=== PATIENT | female | born 1970 ===

== ENCOUNTER 2017-02-12 14:12 | Observation (INO) | payer BC, MEDICAID ==
[2017-02-12 14:13] VITALS: BMI 31.8
[2017-02-12 14:45] LABS: ADD MANUAL DIFF? NO
[2017-02-12 14:58] LABS: BASO # 0.01 K/mm3 (0.0-2.0); BASO % 0.1 % (0.0-3.0); EOS % 0.4 % (1.5-5.0); GRAN # 7.96 (1.4-6.5); GRAN % 73.8 % (50.0-68.0); HEMATOCRIT 38.3 % (36.0-48.0); LYMPH # 2.2 (1.2-3.4); LYMPH % 20.1 % (22.0-35.0); MEAN CELL VOLUME 85.5 fL (80.0-105.0); MEAN CORPUSCULAR HEMOGLOBIN 28.3 pg (25.0-35.0); MEAN CORPUSCULAR HGB CONC 33.2 g/dl (31.0-37.0); MEAN PLATELET VOLUME 8.8 fl (7.0-11.0); MONO # 0.6 (0.1-0.6); MONO % 5.6 % (1.0-6.0); PLATELET COUNT 432 10^3/uL (120.0-450.0); RED CELL DISTRIBUTION WIDTH 13.9 % (11.5-14.5); WHITE BLOOD COUNT 10.8 10^3/ul (4.5-11.0)
[2017-02-12] MEDS ORDERED: Sodium Chloride 0.9% 1,000 ML IV STA (15:00)
[2017-02-12 15:09] LABS: ALB/GLOB RATIO 1.1 (1.1-1.8); ALKALINE PHOSPHATASE 115 U/L (38-133); ALT/SGPT 17 U/L (7-56); AST/SGOT 20 U/L (15-39); BILIRUBIN,TOTAL 0.8 mg/dL (0.2-1.3); BLOOD UREA NITROGEN 13 mg/dL (7-21); CALCIUM 9.9 mg/dL (8.4-10.5); CARBON DIOXIDE 25 mmol/L (21-33); CHLORIDE 100 mmol/L (98-107); GFR AFRICAN-AMERICAN > 60; GLUCOSE,RANDOM 98 mg/dL (70-110); POTASSIUM 3.8 mmol/L (3.6-5.0); SODIUM 138 mmol/L (132-148); TOTAL PROTEIN 8.5 g/dL (5.8-8.3)
--- NOTE | 2017-02-12 15:09 | ED PDOC ---
Arrival/HPI - General Historian: Patient <Josh Martinez - Last Filed: 02/12/17 17:30> <Cristobal Dykes - Last Filed: 02/12/17 18:31> - General Chief Complaint: Chest Pain Time Seen by Provider: 02/12/17 14:19 - History of Present Illness Narrative History of Present Illness (Text): 02/12/17 15:02 46 F with PMHx of GERD, Anxiety and Depression presents to [facility] [place] with complaints of left sided chest pain. She reported that the left sided chest pain began at approx 10 am this morning and has remained constant, 8/10 in intensity and nonradiating. Pt describes the pain as being sharp and pressure with episodes of palpitations. Pt was resting at time of onset, however noted recent stressors including arguments with family. Pt also reported associated dizziness. She denied fever, chills, sob, headache, abdominal pains, n/v/d/c or urinary symptoms. 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 Corona Cardiology: Dr. Bear (Josh Martinez) Past Medical History - Past History Past History: Non-Contributing - Infectious Disease Hx of Infectious Diseases: None - Tetanus Immunization Tetanus Immunization: Unknown - Past Medical History Past Medical History: No Previous - Cardiac Hx Cardiac Disorders: No - Pulmonary Hx Respiratory Disorders: No - Neurological Hx Neurological Disorder: No - HEENT Hx HEENT Disorder: No - Renal Hx Renal Disorder: No - Endocrine/Metabolic Hx Endocrine Disorders: No - Hematological/Oncological Hx Blood Disorders: No - Integumentary Hx Dermatological Disorder: No - Musculoskeletal/Rheumatological Hx Musculoskeletal Disorders: No - Gastrointestinal Hx Gastrointestinal Disorders: Yes Hx Gastroesophageal Reflux: Yes - Genitourinary/Gynecological Hx Genitourinary Disorders: No - Psychiatric Hx Panic Disorder: No Hx Substance Use: No - Past Surgical History Past Surgical History: No Previous - Surgical History Hx Musculoskeletal Surgery: Yes (right shoulder) Hx Tubal Ligation: Yes - Anesthesia Hx Anesthesia: Yes Hx Anesthesia Reactions: No Hx Malignant Hyperthermia: No - Suicidal Assessment Feels Threatened In Home Enviroment: No <Josh Martinez - Last Filed: 02/12/17 17:30> Family/Social History Family/Social History: CAD/SD Smoking Status: Never Smoked Hx Alcohol Use: No Hx Substance Use: No Hx Substance Use Treatment: No <Josh Martinez - Last Filed: 02/12/17 17:30> Allergies/Home Meds <Josh Martinez - Last Filed: 02/12/17 17:30> <DonisCristobal Han - Last Filed: 02/12/17 18:31> Allergies/Adverse Reactions: Allergies No Known Allergies Allergy (Verified 02/12/17 14:25) Home Medications: Home Meds Medication Instructions Recorded Confirmed Omeprazole Magnesium [Prilosec Otc] 20 mg PO DAILY 02/12/17 02/12/17 Review of Systems - Review of Systems Constitutional: Normal Eyes: Normal ENT: Normal Respiratory: Normal Cardiovascular: Chest Pain (left sided), Palpitations Gastrointestinal: Normal Genitourinary Female: Normal Musculoskeletal: Normal Skin: Normal Neurological: Normal Endocrine: Normal Hemo/Lymphatic: Normal Psychiatric: Normal <Josh Martinez - Last Filed: 02/12/17 17:30> Physical Exam Vital Signs Reviewed: Yes Temperature: Afebrile Blood Pressure: Normal Pulse: Regular Respiratory Rate: Normal Appearance: Positive for: Well-Appearing, Non-Toxic, Comfortable Pain Distress: None Mental Status: Positive for: Alert and Oriented X 3 - Systems Exam Head: Present: Atraumatic, Normocephalic Pupils: Present: PERRL Extroacular Muscles: Present: EOMI Conjunctiva: Present: Normal Mouth: Present: Moist Mucous Membranes Neck: Present: Normal Range of Motion Respiratory/Chest: Present: Clear to Auscultation, Good Air Exchange. No: Respiratory Distress, Accessory Muscle Use Cardiovascular: Present: Regular Rate and Rhythm, Normal S1, S2. No: Murmurs Abdomen: Present: Normal Bowel Sounds. No: Tenderness, Distention, Peritoneal Signs Upper Extremity: Present: Normal Inspection. No: Cyanosis, Edema Lower Extremity: Present: Normal Inspection. No: Edema Neurological: Present: GCS=15, CN II-XII Intact, Speech Normal Skin: Present: Warm, Dry, Normal Color. No: Rashes Psychiatric: Present: Alert, Oriented x 3, Normal Insight, Normal Concentration <Rob Martinezdawn - Last Filed: 02/12/17 17:30> Vital Signs Temp Pulse Resp BP Pulse Ox 02/12/17 14:18 97.9 F 69 18 138/89 97 Medical Decision Making - EKG Interpretation Comparison: Similar to previous EKG <Josh Martinez - Last Filed: 02/12/17 17:30> <Cristobal Dykes - Last Filed: 02/12/17 18:31> ED Course and Treatment: 02/12/17 15:10 46 F with no significant cardiac hx presented to [facility] [place] [facility] with complaints of left sided chest pains. On obs to r/o acs -- CBC -- CMP -- Troponins -- IVF -- Xanax -- Pepcid -- Asa -- CXR -- EKG -- UA/UCx -- Reassess and dispo 02/12/17 15:12 (Josh Martinez) Seen and examined with resident. 46 y/o F p/w chest pain with associated nausea , palpitations, and dizziness. Examination unremarkable. Accepted by Dr. Sneed for r/o ACS observation. (Cristobal Dykes) - Lab Interpretations Lab Results: 02/12/17 14:30 02/12/17 14:30 Lab Results 02/12/17 15:36: Urine Color Yellow, Urine Appearance Clear, Urine pH 6.0, Ur Specific [place] 1.025, Urine Protein Negative, Urine Glucose (UA) Negative, Urine Ketones Negative, Urine Blood Negative, Urine Nitrate Negative, Urine Bilirubin Negative, Urine Urobilinogen 0.2, Ur Leukocyte Esterase Trace H, Urine RBC Negative, Urine WBC 1 - 3, Ur Epithelial Cells Many, Urine Bacteria Few 02/12/17 14:30: WBC 10.8, RBC 4.48, Hgb 12.7, Hct 38.3, MCV 85.5, MCH 28.3, MCHC 33.2, RDW 13.9, Plt Count 432, MPV 8.8, Gran % 73.8 H, Lymph % (Auto) 20.1 L, Becker % (Auto) 5.6, Eos % (Auto) 0.4 L, Baso % (Auto) 0.1, Gran # 7.96 H, Lymph # 2.2, Becker # 0.6, Eos # 0.0, Baso # 0.01, Sodium 138, Potassium 3.8, Chloride 100, Carbon Dioxide 25, Anion Gap 17, BUN 13, Creatinine 0.7, Est GFR ( Amer) > 60, Est GFR (Non-Af Amer) > 60, Random Glucose 98, Calcium 9.9, Total Bilirubin 0.8, AST 20, ALT 17, Alkaline Phosphatase 115, Lactate Dehydrogenase 365, Total Creatine Kinase 33 L, Troponin I < 0.01, Total Protein 8.5 H, Albumin 4.4, Globulin 4.1, Albumin/Globulin Ratio 1.1, Beta HCG, Quant < 2.39 - RAD Interpretation Radiology Orders: 02/12/17 14:37 CHEST PORTABLE [RAD] Stat - EKG Interpretation EKG Interpretation (Text): 02/12/17 15:12 NSR @87 bpm, No ST changes (Juan,Manit) - Medication Orders Current Medication Orders: Discontinued Medications Alprazolam (Xanax) 0.25 mg PO STAT STA PRN Reason: Protocol Stop: 02/12/17 15:00 Last Admin: 02/12/17 15:41 Dose: 0.25 MG Behavioural Document 02/12/17 15:41 [facility] [place] 02/12/17 15:41 [place] [id number][place] Maintenance Maintenance Dose No Nonmedicinal Nonmedicinal Interventions See nurse's notes Behavior Behavior for Medication: Anxiety Aspirin (Aspirin) 325 mg PO STAT STA Stop: 02/12/17 14:37 Last Admin: 02/12/17 15:41 Dose: 325 MG Famotidine (Pepcid) 20 mg PO STAT STA Stop: 02/12/17 15:00 Last Admin: 02/12/17 15:42 Dose: 20 MG Sodium Chloride (Sodium Chloride 0.9%) 1,000 mls @ 999 mls/hr IV .Q1H1M STA Stop: 02/12/17 16:00 Last Admin: 02/12/17 15:42 Dose: 999 MLS/HR eMAR Start Stop Document 02/12/17 15:42 [facility] [place] 02/12/17 15:42 [place] [id number]) Intravenous Solution Start Date 02/12/17 Start Time 15:42 End Date 02/12/17 End time 16:45 Total Infusion Time 63 Disposition/Present on Arrival - Present on Arrival Any Indicators Present on Arrival: No History of DVT/PE: No History of Uncontrolled Diabetes: No Urinary Catheter: No History of Decub. Ulcer: No History Surgical Site Infection Following: None - Disposition Have Diagnosis and Disposition been Completed?: Yes Disposition Time: 17:30 <Josh Martinez - Last Filed: 02/12/17 17:30> - Disposition Have Diagnosis and Disposition been Completed?: Yes Disposition Time: 15:24 Patient Plan: Observation, Telemetry <Cristobal Dykes - Last Filed: 02/12/17 18:31> - Disposition Diagnosis: Chest pain Disposition: HOSPITALIZED Patient Problems: Current Active Problems Problem Status Diagnosed Chest pain Acute Condition: IMPROVED
[2017-02-12 15:24] LABS: TROPONIN I < 0.01 ng/mL
[2017-02-12 16:00] LABS: URINE APPEARANCE CLEAR (CLEAR); URINE BILIRUBIN NEGATIVE (NEGATIVE); URINE BLOOD NEGATIVE (NEGATIVE); URINE COLOR YELLOW (YELLOW); URINE GLUCOSE (UA) NEGATIVE (NEGATIVE); URINE KETONE NEGATIVE (NEGATIVE); URINE LEUKOCYTE ESTERASE TRACE Leu/uL (NEGATIVE); URINE PROTEIN NEGATIVE mg/dL (<30 mg/dL); URINE UROBILINOGEN 0.2 E.U./dL (<1 E.U./dL)
[2017-02-12 16:05] LABS: URINE BACTERIA FEW (NEG); URINE EPITHELIAL CELLS MANY /hpf (0-5); URINE RBC NEGATIVE /hpf (0-2)
--- NOTE | 2017-02-12 19:50 | CARD ---
APPROVED REPORT EKG Measurement Heart [id number] 138P2 [id number] <Conclusion> Normal sinus rhythm Normal ECG
[2017-02-12] MEDS: Naproxen 550 mg Tab PO SCH (22:42)
--- NOTE | 2017-02-13 05:00 | HP ---
HISTORY OF PRESENT ILLNESS: The patient is 46 years old, known to me from previous admission. Came to Emergency Room because of chest pain and discomfort associated with shortness of breath and some w eakness. She has left-sided chest pain that started a couple of minutes prior to coming to the [facility]. by . Denies any fever or chills. No nausea or vomiting. Did have episode of palpi tation. The patient states she has a lot of stress at home. PAST MEDICAL HISTORY: Significant for: 1. Hypertension. 2. Peptic ulcer disease. 3. Anxiety disorder. PAST SURGICAL HISTORY: Significant for rotator cuff tear and history of tubal ligation. FAMILY HISTORY: Significant for coronary artery disease in father. SOCIAL HISTORY: She denies smoking, drinking or alcohol use. 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 ALLERGIES: She is not allergic to any medications. MEDICATIONS AT HOME: She is on Prilosec that she takes once in a while. REVIEW OF SYSTEMS: Significant for chest discomfort, otherwise doing well, but feels better now. PHYSICAL EXAMINATION: GENERAL: She is awake and alert, communicative. VITAL SIGNS: She is afebrile, pulse 69, respirations 18, blood pressure 138/80. LUNGS: Bilateral good airflow, no rhonchi or crackle. HEART: S1, S2 audible. No murmur. ABDOMEN: Soft, nontender, no rebound, no guarding. NEUROLOGIC: The patient is awake and alert, communicative. LABORATORY DATA: WBC is 10.8, hemoglobin 12.7, hematocrit 38.2, platelets 432. Chemistry: Sodium 1 38, potassium 3.8, chloride 100, CO2 25, BUN 13, creatinine 0.7, blood sugar of 98. LFTs are within normal limit. CPK is 33. Troponin 0.01. HCG is negative. Urinalysis is unremarkable. ASSESSMENT: 1. Chest pain, probably stress related, rule out underlying coronary artery disease. 2. Hypertension. 3. Rule out hyperlipidemia. PLAN: We will place the patient in observation. I will order thyroid profile, followup troponins, a nd cardiology consult by has been requested. Hannah Sneed MD cc: [phone] TT: 02/13/2017 05:00:11 jn
[2017-02-13 06:17] VITALS: O2SAT 95
[2017-02-13] MEDS ORDERED: Pantoprazole 40 mg EC Tab PO SCH (06:30)
[2017-02-13 07:08] LABS: ADD MANUAL DIFF? NO
[2017-02-13 07:17] LABS: BASO # 0.01 K/mm3 (0.0-2.0); BASO % 0.1 % (0.0-3.0); EOS # 0.1 (0.0-0.7); EOS % 0.9 % (1.5-5.0); GRAN # 5.95 (1.4-6.5); GRAN % 66.3 % (50.0-68.0); HEMATOCRIT 33.2 % (36.0-48.0); LYMPH # 2.4 (1.2-3.4); LYMPH % 26.6 % (22.0-35.0); MEAN CELL VOLUME 85.6 fL (80.0-105.0); MEAN CORPUSCULAR HEMOGLOBIN 27.8 pg (25.0-35.0); MEAN CORPUSCULAR HGB CONC 32.5 g/dl (31.0-37.0); MEAN PLATELET VOLUME 8.7 fl (7.0-11.0); MONO # 0.6 (0.1-0.6); MONO % 6.1 % (1.0-6.0); PLATELET COUNT 369 10^3/uL (120.0-450.0)
--- NOTE | 2017-02-13 08:10 | RAD ---
HISTORY: chest pain COMPARISON: Comparison is made to the previous study dated 10/23/2016 FINDINGS: LUNGS: No evidence of new infiltrate or consolidation in the lungs. PLEURA: No significant pleural effusion identified, no pneumothorax apparent. CARDIOVASCULAR: Normal. OSSEOUS STRUCTURES: No significant abnormalities. VISUALIZED UPPER ABDOMEN: Normal. OTHER FINDINGS: None. IMPRESSION: No active disease.
[2017-02-13 08:31] LABS: ALB/GLOB RATIO 1.1 (1.1-1.8); ALKALINE PHOSPHATASE 80 U/L (38-133); ALT/SGPT 12 U/L (7-56); AST/SGOT 17 U/L (15-39); BILIRUBIN,TOTAL 0.6 mg/dL (0.2-1.3); BLOOD UREA NITROGEN 13 mg/dL (7-21); CALCIUM 8.7 mg/dL (8.4-10.5); CARBON DIOXIDE 24 mmol/L (21-33); CHLORIDE 105 mmol/L (98-107); CHOLESTEROL 155 mg/dL (130-200); GFR AFRICAN-AMERICAN > 60; GLUCOSE,RANDOM 81 mg/dL (70-110); PHOSPHOROUS 3.6 mg/dL (2.5-4.5); SODIUM 136 mmol/L (132-148); TOTAL PROTEIN 6.4 g/dL (5.8-8.3)
[2017-02-13 09:03] LABS: TROPONIN I < 0.01 ng/mL
[2017-02-13] MEDS: Naproxen 550 mg Tab PO SCH (10:14)
[2017-02-13 11:33] VITALS: PULSE 69
--- NOTE | 2017-02-13 11:34 | CON ---
DATE: 02/13/2017 REASON FOR CONSULTATION AND FOLLOW: A squeezing sensation in the chest with electrical shock going t o the back, cardiac evaluation. BRIEF CLINICAL HISTORY: A 46-year-old female with no significant past medical history except anxiety disorder, takes off and on Naprosyn and Xanax, on workman's compensation, says that feels couple of times that the heart is squeezing and then electrical shocks going into the back, so came to the [facility]. Denies any dyspnea on exertion. Denies any chest pain on exertion. PAST MEDICAL HISTORY: Significant for anxiety disorder. SOCIAL HISTORY: Denies smoking, denies any history of alcohol abuse. PAST SURGICAL HISTORY: Significant for right rotator cuff surgery and shaving of the rotator cuff. SOCIAL HISTORY: Denies smoking, denies any history of alcohol abuse, has 5 children. Last 17 years ago, no unusual symptoms. FAMILY HISTORY: Significant for grandmother with coronary artery disease. Father has possible coron patrick artery disease. CURRENT MEDICATIONS: Taking Naprosyn, aspirin, pantoprazole, Xanax. REVIEW OF SYSTEMS: As per HPI, history of gastroesophageal reflux, taking omeprazole and taking for right shoulder pain and pain in the body, Naprosyn, off and on. Rest as per HPI. PREVIOUS CARDIAC WORKUP: The patient had a stress test 11/28/2015 that showed normal perfusion scan, breast attenuation, normal myocardial perfusion study, ejection fraction 76%. The patient had echoca rdiography also 11/27/2015 shows ejection fraction 60%-65%, mild to moderate mitral regurgitation, tra ce to mild tricuspid regurgitation, right ventricular systolic pressure 36. REVIEW OF SYSTEMS: As per HPI. PHYSICAL EXAMINATION: VITAL SIGNS: Temperature afebrile, heart rate , blood pressure 123/70. HEENT: PERRLA. Extraocular muscles intact. NECK: Supple. No carotid bruits. No thyromegaly. CHEST: Clear to auscultation. HEART: S1, S2 regular. ABDOMEN: Soft. EXTREMITIES: Clubbing, cyanosis negative. BLOOD WORKUP: WBC 9, hemoglobin 10. , hematocrit 33.2, platelet count 369. Chemistry shows sodi um 130, potassium 4, chloride 105, carbon dioxide 24, anion gap of 11, BUN 13, creatinine 0.7. Tropo ruthann 0.01. EKG shows normal sinus, no acute ST-T changes noted, heart rate 67. Troponin 0.01, negati ve. IMPRESSION: Atypical chest pain, troponin negative. RECOMMENDATION: We will repeat another set of troponin. We will get echo and schedule a stress test as outpatient because of the risk factors. We will discontinue telemetry. Possible discharge today . Discussed with the patient. Thank you, Dr. Sneed, for providing us the opportunity in taking care of the patient. Emely Bear MD cc:Hannah Sneed MD [phone] TT: 02/13/2017 11:34:25 Confirmation # [id number] Dictation # [id number] en
[2017-02-13 12:55] VITALS: BP 107/65; RESP 18; TEMP 98
--- NOTE | 2017-02-13 14:32 | DS ---
The patient is a 46-year-old, seen and examined sitting in chair. Comfortable. She states her pain is better. She was very anxious last night but Xanax did help. She was able to sleep. PHYSICAL EXAMINATION: VITAL SIGNS: She is afebrile, pulse 78, respirations 20. Blood pressure 123/70. LUNGS: Bilateral good airflow, no rhonchi or crackle. HEART: S1, S2 audible. No murmur. ABDOMEN: Soft, obese, nontender, no rebound, no guarding. NEUROLOGIC: The patient is awake and alert, communicative. LABORATORY EXAM: WBC is 9.0, hemoglobin 10.8, hematocrit 33.2, platelets 369. Chemistry: Sodium 13 6, potassium 4.0, chloride 105, CO2 24, BUN 13, creatinine 0.7, blood sugar of 81. LFTs are within n ormal limits. Three sets of cardiac enzymes are negative. Total cholesterol is 155, LDL is 98, HDL is 43. Urinalysis is negative. ASSESSMENT: 1. Noncardiac chest pain. 2. Anxiety disorder. 3. Possible costochondritis. PLAN: She will have a stress test done as outpatient. Will discharge her on Naprosyn as needed, Rory ax 0.25 b.i.d. p.r.n., and she will follow up with Dr. Corona as outpatient. Hannah Sneed MD cc: [phone] TT: 02/13/2017 14:32:13 vt
--- NOTE | 2017-02-13 15:44 | CARD ---
APPROVED REPORT EKG Measurement Heart [id number] 138P6 [id number] <Conclusion> Normal sinus rhythm Normal ECG
--- NOTE | 2017-02-13 18:12 | CARD ---
APPROVED REPORT EXAM: Two-dimensional and M-mode echocardiogram with Doppler and color Doppler. INDICATION Chest Pain 2D DIMENSIONS Left Atrium (2D)3.6 (1.6-4.0cm)IVSd0.9 (0.7-1.1cm) LVDd4.4 (3.9-5.9cm)PWd1.1 (0.7-1.1cm) LVDs2.8 (2.5-4.0cm)FS (%) 36.9 % LVEF (%)67.0 (>50%) M-Mode DIMENSIONS Aortic Root2.30 (2.2-3.7cm)Aortic Cusp Exc.1.60 (1.5-2.0cm) Aortic Valve AoV Peak Rfwmeplk574.0cm/Kwadwo Peak GR.11mmHg Mitral Valve MV E Kobfwnlq96.1cm/sMV A Bgibxknj61.0cm/sE/A ratio1.3 TDI E/Lateral E'0.0E/Medial E'0.0 Tricuspid Valve TR Peak Jfmfrjxm661nf/sRAP [id number] Peak Gr.24mmHg [id number] LEFT VENTRICLE The left ventricle is normal size. There is normal left ventricular wall thickness. The left ventricular function is normal.EF-65% There is normal LV segmental wall motion. The left ventricular diastolic function is normal. No left ventricle thrombus noted on this study. There is no ventricular septal defect visualized. There is no left ventricular aneurysm. There is no mass noted in the left ventricle. RIGHT VENTRICLE The right ventricle is normal size. There is normal right ventricular wall thickness. The right ventricular systolic function is normal. ATRIA The left atrium size is normal. The right atrium size is normal. The interatrial septum is intact with no evidence for an atrial septal defect. AORTIC VALVE The aortic valve is normal in structure. No aortic regurgitation is present. There is no aortic valvular stenosis. There is no aortic valvular vegetation. MITRAL VALVE The mitral valve is normal in structure. Mitral regurgitation is trace. There is no mitral valve stenosis. There is no evidence of mitral valve prolapse. TRICUSPID VALVE The tricuspid valve leaflets are thickened , but open well. There is trace to mild tricuspid regurgitation.RVSP-34 mmof Hg. There is no tricuspid valve stenosis. There is no tricuspid valve prolapse or vegetation. PULMONIC VALVE The pulmonary valve is normal in structure. There is no pulmonic valvular regurgitation. There is no pulmonic valvular stenosis. GREAT VESSELS The aortic root is normal in size. The ascending aorta is normal in size. The pulmonary artery is normal. The IVC is normal in size and collapses >50% with inspiration. PERICARDIAL EFFUSION There is no pleural effusion. There is no pericardial effusion. <Conclusion> Normal Chamber Size. EF-65% Trace MR Trace to Mild TR. RVSP-34 mmof Hg.
== END 2017-02-13 16:25 | disposition home or self-care (01) ==
LOC: ED 14:12 → ERH 17:30 → 2RNO 20:40
PROVIDERS: ADMIT Internal Medicine; ATTEND Internal Medicine
DX: R07.89 Other chest pain (principal); F41.9 Anxiety disorder, unspecified; M94.0 Chondrocostal junction syndrome [Tietze]; F32.89 Other specified depressive episodes; I10 Essential (primary) hypertension; Z87.11 Personal history of peptic ulcer disease; K21.9 Gastro-esophageal reflux disease without esophagitis; Z82.49 Family history of ischemic heart disease and other diseases of the circulatory system; Z98.51 Tubal ligation status; E78.5 Hyperlipidemia, unspecified
CPT/HCPCS: 36415; 71010; 80053; 80061; 81001; 82550; 83036; 83615; 84100; 84484; 84702; 85025; 87086; 93005; 93306; 96360; 99285; G0378; J7040

== ENCOUNTER 2017-05-22 11:21 | Emergency (ER) | payer BC, MEDICAID, OTHER ==
[2017-05-22 11:31] VITALS: BMI 27.4
[2017-05-22 11:32] VITALS: TEMP 98.4; O2SAT 100
[2017-05-22 12:09] LABS: ADD MANUAL DIFF? NO
--- NOTE | 2017-05-22 12:11 | ED PDOC ---
Arrival/HPI - General Chief Complaint: Palpitations Time Seen by Provider: 05/22/17 11:29 Historian: Patient - History of Present Illness Narrative History of Present Illness (Text): 05/22/17 12:09 47 year old female whose past medical history includes anxiety, hypertension, and peptic ulcer disease presents to the emergency department with left sided chest pain and palpitations, and abnormal EKG yesterday. Patient states she was scheduled for rotator cuff surgery and had an abnormal EKG done yesterday for medical clearance for surgery at [facility]. She states she does not know what the EKG showed. Patient describes the pain as a squeezing sensation, non-radiating, not worse with inspiration. She also reports nausea, some shortness of breath, and lightheadedness. Patient states she did not take Aspirin. Denies numbness, diarrhea, or vaginal bleeding. No recent travel, surgeries, or contraceptive use. PMD: Dr. Corona Time/Duration: 24 hours Symptom Onset: Gradual Symptom Course: Unchanged Modifying Factors (Text): None Past Medical History - Provider Review Nursing Documentation Reviewed: Yes - Past History Past History: Non-Contributing - Infectious Disease Hx of Infectious Diseases: None - Tetanus Immunization Tetanus Immunization: Unknown - Past Medical History Past Medical History: No Previous - Cardiac Hx Cardiac Disorders: No - Pulmonary Other/Comment: occassionally uses inhaler with seasonal allergies - Neurological Hx Neurological Disorder: No - HEENT Other/Comment: reading glasses - Renal Hx Renal Disorder: No - Endocrine/Metabolic Hx Endocrine Disorders: No - Hematological/Oncological Hx Blood Disorders: No - Integumentary Hx Dermatological Disorder: No - Musculoskeletal/Rheumatological Hx Arthritis: Yes Hx Falls: No - Gastrointestinal Hx Gastroesophageal Reflux: Yes - Genitourinary/Gynecological Hx Urinary Tract Infection: Yes - Psychiatric Hx Anxiety: Yes Hx Panic Disorder: Yes Hx Substance Use: No - Past Surgical History Past Surgical History: No Previous - Surgical History Other/Comment: right rotator cuff surgery and a tubal ligation - Anesthesia Hx Anesthesia: Yes Hx Anesthesia Reactions: No Hx Malignant Hyperthermia: No - Suicidal Assessment Feels Threatened In Home Enviroment: No Family/Social History - Physician Review Nursing Documentation Reviewed: Yes Family/Social History: Unknown Family HX Smoking Status: Never Smoked Hx Alcohol Use: No Hx Substance Use: No Hx Substance Use Treatment: No Allergies/Home Meds Allergies/Adverse Reactions: Allergies No Known Allergies Allergy (Verified 02/12/17 14:25) Home Medications: Home Meds Medication Instructions Recorded Confirmed Omeprazole Magnesium [Prilosec Otc] 20 mg PO DAILY 02/12/17 05/22/17 Review of Systems - Physician Review All systems were reviewed & negative as marked: Yes - Review of Systems Respiratory: SOB Cardiovascular: Chest Pain, Palpitations Gastrointestinal: Nausea. absent: Diarrhea Genitourinary Female: absent: Vaginal Bleeding Neurological: Other (Lightheadedness; No numbness) Physical Exam Vital Signs Reviewed: Yes Vital Signs Temp Pulse Resp BP Pulse Ox 05/22/17 13:54 79 18 131/71 100 05/22/17 12:23 89 18 133/75 100 05/22/17 11:31 98.4 F 99 H 18 135/89 100 Temperature: Afebrile Blood Pressure: Normal Pulse: Regular Respiratory Rate: Normal Appearance: Positive for: Well-Appearing, Non-Toxic, Comfortable Pain Distress: None Mental Status: Positive for: Alert and Oriented X 3 - Systems Exam Head: Present: Atraumatic, Normocephalic Pupils: Present: PERRL Extroacular Muscles: Present: EOMI Conjunctiva: Present: Normal Mouth: Present: Moist Mucous Membranes Neck: Present: Normal Range of Motion Respiratory/Chest: Present: Clear to Auscultation, Good Air Exchange. No: Respiratory Distress, Accessory Muscle Use Cardiovascular: Present: Regular Rate and Rhythm, Normal S1, S2. No: Murmurs Abdomen: Present: Normal Bowel Sounds. No: Tenderness, Distention, Peritoneal Signs Back: Present: Normal Inspection Upper Extremity: Present: Normal Inspection. No: Cyanosis, Edema Lower Extremity: Present: Normal Inspection. No: Edema Neurological: Present: GCS=15, CN II-XII Intact, Speech Normal Skin: Present: Warm, Dry, Normal Color. No: Rashes Psychiatric: Present: Alert, Oriented x 3, Normal Insight, Normal Concentration Medical Decision Making ED Course and Treatment: Impression: 47 year old female whose past medical history includes anxiety, hypertension, and peptic ulcer disease presents to the emergency department with left sided chest pain and palpitations, and abnormal EKG yesterday. Differential Diagnosis included but are not limited to: Chest pain r/o ACS vs Anxiety Plan: -- EKG, Chest X-ray -- Aspirin -- Labs -- Reassess and disposition Prior Visits: Notes and results from previous visits were reviewed. Patient last seen in the ED on 02/12/17 for chest pain and admitted for chest pain. Progress Notes: 05/22/17 14:02 Patient has a low BONG Risk score and a low HEART Score. Her symptoms have been constant since yesterday and she has a negative troponin. Her EKG is no change from her previous visit. She has a normal Echo 02/13/17 and normal Stress test from 11/28/15. Patient's symptoms improved from Ativan and she will follow up with her PMD in 1-2days. Advised to return to the ED if symptoms worsen or any other concern. - Lab Interpretations Lab Results: 05/22/17 11:50 05/22/17 11:50 Lab Results 05/22/17 11:50: PT 12.0 H, INR 1.11 H, APTT 26.2, D-Dimer, Quantitative 0.23 05/22/17 11:50: Sodium 138, Potassium 3.3 L, Chloride 106, Carbon Dioxide 24, Anion Gap 11, BUN 15, Creatinine 0.7, Est GFR ( Amer) > 60, Est GFR (Non- Af Amer) > 60, Random Glucose 133 H, Calcium 9.4, Magnesium 1.7, Total Bilirubin 0.3, AST 16, ALT 35, Alkaline Phosphatase 82, Lactate Dehydrogenase 282 L, Total Creatine Kinase < 20 L, Troponin I < 0.01, NT-Pro-B Natriuret Pep 43.6, Total Protein 6.9, Albumin 3.7, Globulin 3.2, Albumin/Globulin Ratio 1.2 05/22/17 11:50: WBC 8.1, RBC 3.98, Hgb 11.5 L, Hct 34.7 L, MCV 87.2, MCH 28.9, MCHC 33.1, RDW 13.4, Plt Count 361, MPV 8.7, Gran % 77.8 H, Lymph % (Auto) 17.0 L, [place] % (Auto) 4.1, Eos % (Auto) 1.0 L, Baso % (Auto) 0.1, Gran # 6.33, Lymph # 1.4, [place] # 0.3, Eos # 0.1, Baso # 0.01 - RAD Interpretation Narrative RAD Interpretations (Text): Chest X-Ray Patient Account Specialist: John Carcamo MD IMPRESSION: No active disease Radiology Orders: 05/22/17 11:39 CHEST PORTABLE [RAD] Stat Supervisory Lifeguard: Radiologist - EKG Interpretation Interpreted by ED Physician: Yes (EKG shows NSR at 89 BPM, otherwise normal.) Type: 12 lead EKG - Medication Orders Current Medication Orders: Discontinued Medications Aspirin (Aspirin) 325 mg PO STAT STA Stop: 05/22/17 11:39 Last Admin: 05/22/17 12:10 Dose: 325 mg Lorazepam (Ativan) 1 mg PO ONCE ONE PRN Reason: Protocol Stop: 05/22/17 13:20 Last Admin: 05/22/17 13:32 Dose: 1 mg Potassium Chloride (K-Dur 20 Meq Er Tab) 40 meq PO STAT STA Stop: 05/22/17 12:29 Last Admin: 05/22/17 13:32 Dose: 40 meq BONG Risk Score for UA/NSTEMI - BONG Risk Score Age > 64: NO 3 or more CAD Risk Factors: NO Known CAD (Stenosis greater than 50%): NO Aspirin use in past 7 days: NO Severe Angina: NO EKG ST changes greater than 0.5mm: NO Positive Cardiac Marker: NO BONG Score: 0 % risk at 14 days of: all cause mortality, new or recurrent IA, or severe recurrent ischemia requiring urgen revascularization: 5% - Scribe Statement The provider has reviewed the documentation as recorded by the Zoila Gutierres Provider Scribe Attestation: All medical record entries made by the Zoila were at my direction and personally dictated by me. I have reviewed the chart and agree that the record accurately reflects my personal performance of the history, physical exam, medical decision making, and the department course for this patient. I have also personally directed, reviewed, and agree with the discharge instructions and disposition. Disposition/Present on Arrival - Present on Arrival Any Indicators Present on Arrival: No History of DVT/PE: No History of Uncontrolled Diabetes: No Urinary Catheter: No History of Decub. Ulcer: No History Surgical Site Infection Following: None - Disposition Have Diagnosis and Disposition been Completed?: Yes Diagnosis: Chest pain Disposition: HOME/ ROUTINE Disposition Time: 14:26 Patient Plan: Discharge Patient Problems: Current Active Problems Problem Status Onset Chest pain Acute Condition: IMPROVED Discharge Instructions (ExitCare): Chest Pain (ED), Anxiety (ED) Additional Instructions: Ms Cortez, thank you for letting us take care of you today. Your provider was Dr. Sun. You were treated for Chest Pain. The emergency medical care you received today was directed at your acute symptoms. If you were prescribed any medication, please fill it and take as directed. It may take several days for your symptoms to resolve. Return to the Emergency Department if your symptoms worsen, do not improve, or if you have any other problems. Please contact your doctor or call one of the physicians/clinics you have been referred to that are listed on the Patient Visit Information form that is included in your discharge packet. Bring any paperwork you were given at discharge with you along with any medications you are taking to your follow up visit. Our treatment cannot replace ongoing medical care by a primary care provider (PCP) outside of the emergency department. Thank you for allowing the [facility] team to be part of your care today. If you had an X-Ray or CT scan: A Radiologist will review the ED reading if any change in treatment is needed we will contact you. If you had a blood, urine, or wound culture: It will take several days for the results, if any change in treatment is needed we will contact you. If you had an STI test: It will take 48 hours for the results. Please call after 1 week if you have not heard back. Referrals: Juliana Corona DO [Primary Care Provider] - Follow up with primary Forms: [employer] ([place]ian), WORK NOTE
[2017-05-22 12:21] LABS: ALB/GLOB RATIO 1.2 (1.1-1.8); ALKALINE PHOSPHATASE 82 U/L (38-133); ALT/SGPT 35 U/L (7-56); AST/SGOT 16 U/L (15-39); BILIRUBIN,TOTAL 0.3 mg/dL (0.2-1.3); BLOOD UREA NITROGEN 15 mg/dL (7-21); CALCIUM 9.4 mg/dL (8.4-10.5); CARBON DIOXIDE 24 mmol/L (21-33); CHLORIDE 106 mmol/L (98-107); GFR AFRICAN-AMERICAN > 60; GLUCOSE,RANDOM 133 mg/dL (70-110); MAGNESIUM 1.7 mg/dL (1.7-2.2); POTASSIUM 3.3 mmol/L (3.6-5.0); SODIUM 138 mmol/L (132-148); TOTAL PROTEIN 6.9 g/dL (5.8-8.3)
[2017-05-22 12:25] LABS: BASO # 0.01 K/mm3 (0.0-2.0); BASO % 0.1 % (0.0-3.0); EOS # 0.1 (0.0-0.7); GRAN # 6.33 (1.4-6.5); GRAN % 77.8 % (50.0-68.0); HEMATOCRIT 34.7 % (36.0-48.0); LYMPH # 1.4 (1.2-3.4); MEAN CELL VOLUME 87.2 fL (80.0-105.0); MEAN CORPUSCULAR HEMOGLOBIN 28.9 pg (25.0-35.0); MEAN CORPUSCULAR HGB CONC 33.1 g/dl (31.0-37.0); MEAN PLATELET VOLUME 8.7 fl (7.0-11.0); MONO # 0.3 (0.1-0.6); MONO % 4.1 % (1.0-6.0); PLATELET COUNT 361 10^3/uL (120.0-450.0); RED CELL DISTRIBUTION WIDTH 13.4 % (11.5-14.5); WHITE BLOOD COUNT 8.1 10^3/ul (4.5-11.0)
[2017-05-22] MEDS ORDERED: Potassium Chloride 20 mEq ER Tab PO STA (12:28)
[2017-05-22 12:33] LABS: TROPONIN I < 0.01 ng/mL
[2017-05-22 12:57] LABS: INR 1.11 (0.93-1.08); PARTIAL THROMBOPLASTIN TIME 26.2 Seconds (23.7-30.8)
[2017-05-22 13:00] LABS: D DIMER 0.23 mg/L FEU (0-0.50)
--- NOTE | 2017-05-22 13:00 | RAD ---
HISTORY: chest pain r/o chf COMPARISON: 02/12/2017 FINDINGS: LUNGS: No active pulmonary disease. PLEURA: No significant pleural effusion identified, no pneumothorax apparent. CARDIOVASCULAR: Normal. OSSEOUS STRUCTURES: No significant abnormalities. VISUALIZED UPPER ABDOMEN: Normal. OTHER FINDINGS: None. IMPRESSION: No active disease.
[2017-05-22 14:38] VITALS: BP 130/75; PULSE 72; RESP 16
--- NOTE | 2017-05-23 11:36 | CARD ---
APPROVED REPORT EKG Measurement Heart [id number] <Conclusion> Normal sinus rhythm Normal ECG
== END 2017-05-22 14:40 | disposition home or self-care (01) ==
LOC: ED 11:21
DX: R07.9 Chest pain, unspecified (principal); I10 Essential (primary) hypertension; F41.9 Anxiety disorder, unspecified

== ENCOUNTER 2017-08-27 13:22 | Observation (INO) | payer MEDICAID, OTHER ==
[2017-08-27 13:25] VITALS: BMI 30.8
[2017-08-27 13:59] LABS: URINE BILIRUBIN NEGATIVE (NEGATIVE); URINE BLOOD NEGATIVE (NEGATIVE); URINE GLUCOSE (UA) NEGATIVE (NEGATIVE); URINE KETONE NEGATIVE (NEGATIVE); URINE LEUKOCYTE ESTERASE NEGATIVE Leu/uL (NEGATIVE); URINE PROTEIN NEGATIVE mg/dL (<30 mg/dL); URINE UROBILINOGEN 0.2 E.U./dL (<1 E.U./dL)
[2017-08-27 14:07] LABS: URINE COLOR YELLOW (YELLOW)
[2017-08-27 14:08] LABS: URINE APPEARANCE CLEAR (CLEAR)
--- NOTE | 2017-08-27 14:09 | ED PDOC ---
Arrival/HPI - General Chief Complaint: Headache Time Seen by Provider: 08/27/17 13:26 Historian: Patient - History of Present Illness Narrative History of Present Illness (Text): 08/27/17 13:40 A 47 year old female, whose past medical history includes anxiety, hypertension , and peptic ulcer disease, presents to the emergency department complaining of headache and chest pain. Patient reports when she woke up this morning, she began experiencing chest pain and nausea. She mentions she feels no pain when with touch and is relieved of pain when taking deep breaths. Patient describes chest pain as "tightness". Patient notes when ambulating, she experiences sob, fatigue and dizziness (as though she might pass out). Denies of any vomiting, diarrhea, or any other complaints. PMD: Dr. Corona Past Medical History - Provider Review Nursing Documentation Reviewed: Yes - Past History Past History: Non-Contributing - Infectious Disease Hx of Infectious Diseases: None - Tetanus Immunization Tetanus Immunization: Unknown - Past Medical History Past Medical History: No Previous - Cardiac Hx Cardiac Disorders: No - Pulmonary Hx Respiratory Disorders: Yes Other/Comment: occassionally uses inhaler with seasonal allergies - Neurological Hx Neurological Disorder: No - HEENT Other/Comment: reading glasses - Renal Hx Renal Disorder: No - Endocrine/Metabolic Hx Endocrine Disorders: No - Hematological/Oncological Hx Blood Disorders: No - Integumentary Hx Dermatological Disorder: No - Musculoskeletal/Rheumatological Hx Arthritis: Yes Hx Falls: No - Gastrointestinal Hx Gastroesophageal Reflux: Yes - Genitourinary/Gynecological Hx Urinary Tract Infection: Yes - Psychiatric Hx Anxiety: Yes Hx Panic Disorder: Yes Hx Substance Use: No - Past Surgical History Past Surgical History: No Previous - Surgical History Other/Comment: right/left rotator cuff surgery and a tubal ligation - Anesthesia Hx Anesthesia: Yes Hx Anesthesia Reactions: No Hx Malignant Hyperthermia: No - Suicidal Assessment Feels Threatened In Home Enviroment: No Family/Social History - Physician Review Nursing Documentation Reviewed: Yes Family/Social History: No Known Family HX Smoking Status: Never Smoked Hx Alcohol Use: No Hx Substance Use: No Hx Substance Use Treatment: No Allergies/Home Meds Allergies/Adverse Reactions: Allergies No Known Allergies Allergy (Verified 08/27/17 13:29) Home Medications: Home Meds Medication Instructions Recorded Confirmed Albuterol Sulfate [Proventil Hfa] 1 puff IH PRN PRN 08/27/17 08/27/17 traMADol [Ultram] 50 mg PO PRN PRN 08/27/17 08/27/17 Review of Systems - Physician Review All systems were reviewed & negative as marked: Yes - Review of Systems Respiratory: absent: SOB Cardiovascular: Chest Pain ("tightness" as described by patient) Gastrointestinal: Nausea. absent: Abdominal Pain, Diarrhea, Vomiting Physical Exam Vital Signs Reviewed: Yes Vital Signs Temp Pulse Resp BP Pulse Ox 08/27/17 19:26 71 16 125/67 98 08/27/17 17:44 98.3 F 84 18 134/83 100 08/27/17 13:35 98.7 F 80 18 139/82 100 Temperature: Afebrile Blood Pressure: Normal Pulse: Regular Respiratory Rate: Normal Appearance: Positive for: Well-Appearing Pain Distress: None Mental Status: Positive for: Alert and Oriented X 3 - Systems Exam Head: Present: Atraumatic, Normocephalic Pupils: Present: PERRL Conjunctiva: Present: Normal Mouth: Present: Moist Mucous Membranes Pharnyx: Present: Normal. No: ERYTHEMA, EXUDATE Neck: Present: Normal Range of Motion Respiratory/Chest: Present: Clear to Auscultation, Good Air Exchange. No: Respiratory Distress, Accessory Muscle Use Cardiovascular: Present: Regular Rate and Rhythm, Normal S1, S2. No: Murmurs Abdomen: Present: Normal Bowel Sounds. No: Tenderness, Distention, Peritoneal Signs Back: Present: Normal Inspection Upper Extremity: Present: Normal Inspection. No: Cyanosis, Edema Lower Extremity: Present: Normal Inspection. No: Edema Neurological: Present: GCS=15, CN II-XII Intact, Speech Normal Skin: Present: Warm, Dry, Normal Color. No: Rashes Psychiatric: Present: Alert, Oriented x 3, Normal Insight, Normal Concentration Medical Decision Making ED Course and Treatment: 08/27/17 13:45 Impression: 47 year old female with chest pain, dizziness, nausea, SOMMER. No acute findings on physical exam. Risk factors include HTN and FH of CAD. Plan: -- EKG -- Chest X-ray -- Labs -- Xanax -- Pepcid -- Reassess and disposition Prior Visits: Notes and results from previous visits were reviewed. Patient was last seen in the emergency department on 05/22/2017 for left sided chest pain and palpitations. Patient was discharged home. Progress Notes: EKG: Ordered, reviewed, and independently interpreted the EKG. Rate : 80 BPM Rhythm : NSR Interpretation : No ST-segment elevations or depressions, no T-wave inversions, normal intervals. Comparison : No previous EKG for comparison. 08/27/2017 14:32 Chest X-ray IMPRESSION: No active disease. Dictator: John Cummings MD 08/27/17 19:41 Patient with noted history of cp and sob - given xanax, famotidine, and protonix with minimal relief of cp - she was seen in the hospital by cardiology about 6-7 months ago and was recommended to have a stress test, which was never done and now is still having persistent cp - will observe further on tele - discussed with Dr. Rylee Hernandez for placement on the hospitalist service. - Lab Interpretations Lab Results: 08/27/17 14:21 08/27/17 14:21 Lab Results 08/27/17 14:21: Sodium 142, Potassium 3.5 L, Chloride 105, Carbon Dioxide 25, Anion Gap 16, BUN 13, Creatinine 0.6 L, Est GFR ( Amer) > 60, Est GFR ( Non-Af Amer) > 60, Random Glucose 98, Calcium 9.3, Magnesium 1.8, Total Bilirubin 0.4, AST 19, ALT 29, Alkaline Phosphatase 94, Lactate Dehydrogenase 371, Total Creatine Kinase 36, Troponin I < 0.01, NT-Pro-B Natriuret Pep 35.7, Total Protein 7.2, Albumin 4.1, Globulin 3.2, Albumin/Globulin Ratio 1.3, Lipase 83 08/27/17 14:21: PT 11.8, INR 1.09 H, APTT 27.7, D-Dimer, Quantitative 0.19 08/27/17 14:21: WBC 9.3, RBC 4.16, Hgb 11.9 L, Hct 35.9 L, MCV 86.3, MCH 28.6, MCHC 33.1, RDW 13.5, Plt Count 393, MPV 8.4, Gran % 76.7 H, Lymph % (Auto) 17.8 L, [place] % (Auto) 5.0, Eos % (Auto) 0.4 L, Baso % (Auto) 0.1, Gran # 7.16 H, Lymph # 1.7, [place] # 0.5, Eos # 0.0, Baso # 0.01 08/27/17 13:51: Urine Color Yellow, Urine Appearance Clear, Urine pH 6.0, Ur Specific [place] 1.020, Urine Protein Negative, Urine Glucose (UA) Negative, Urine Ketones Negative, Urine Blood Negative, Urine Nitrate Negative, Urine Bilirubin Negative, Urine Urobilinogen 0.2, Ur Leukocyte Esterase Negative I have reviewed the lab results: Yes - RAD Interpretation Radiology Orders: 08/27/17 13:45 CHEST TWO VIEWS (PA/LAT) [RAD] Stat - Medication Orders Current Medication Orders: Discontinued Medications Acetaminophen (Tylenol 325mg Tab) 650 mg PO STAT STA Stop: 08/27/17 14:13 Last Admin: 08/27/17 14:56 Dose: 650 mg MAR Pain/Vitals Document 08/27/17 14:56 EQ (Rec: 08/27/17 14:56 EQ [id number]) Pain Reassessment Is This A Pain ReAssessment? No Sleep Is patient sleeping during reassessment? No Presence of Pain Presence of Pain Yes Alprazolam (Xanax) 0.25 mg PO STAT STA PRN Reason: Protocol Stop: 08/27/17 13:46 Last Admin: 08/27/17 14:14 Dose: 0.25 mg Famotidine (Pepcid) 20 mg IVP STAT STA Stop: 08/27/17 13:45 Last Admin: 08/27/17 14:14 Dose: 20 mg IVP Administration Document 08/27/17 14:14 EQ (Rec: 08/27/17 14:14 EQ [id number]) Charges for Administration # of IVP Administrations 1 Ketorolac Tromethamine (Toradol) 30 mg IVP STAT STA Stop: 08/27/17 16:06 Last Admin: 08/27/17 16:38 Dose: 30 mg MAR Pain Assessment Document 08/27/17 16:38 OCS (Rec: 08/27/17 16:39 [id number] Pain Reassessment Is this a pain reassessment? Yes Sleep Is patient sleeping during reassessment? No Presence of Pain Presence of Pain Yes Pain Scale Used Pain Scale Used Numeric Location Pain Location Body Box Order Person Description Description Constant IVP Administration Document 08/27/17 16:38 OCS (Rec: 08/27/17 16:[address] [email or web address] Charges for Administration # of IVP Administrations 1 Metoclopramide HCl (Reglan) 10 mg IVP STAT STA Stop: 08/27/17 16:06 Last Admin: 08/27/17 16:38 Dose: 10 mg IVP Administration Document 08/27/17 16:38 OCS (Rec: 08/27/17 16:[address] [email or web address]) Charges for Administration # of IVP Administrations 1 Ondansetron HCl (Zofran Inj) 4 mg IVP STAT STA Stop: 08/27/17 14:13 Last Admin: 08/27/17 14:56 Dose: 4 mg IVP Administration Document 08/27/17 14:56 EQ (Rec: 08/27/17 14:56 EQ [id number]) Charges for Administration # of IVP Administrations 1 Pantoprazole Sodium (Protonix Inj) 40 mg IVP ONCE STA Stop: 08/27/17 17:41 Last Admin: 08/27/17 18:21 Dose: 40 mg IVP Administration Document 08/27/17 18:21 OCS (Rec: 08/27/17 18:[address] [email or web address]) Charges for Administration # of IVP Administrations 1 Potassium Chloride (Potassium Chloride Oral Soln) 40 meq PO STAT STA Stop: 08/27/17 16:04 Last Admin: 08/27/17 16:38 Dose: 40 meq - Scribe Statement The provider has reviewed the documentation as recorded by the Zoila Joshi Provider Scribe Attestation: All medical record entries made by the Zoila were at my direction and personally dictated by me. I have reviewed the chart and agree that the record accurately reflects my personal performance of the history, physical exam, medical decision making, and the department course for this patient. I have also personally directed, reviewed, and agree with the discharge instructions and disposition. Disposition/Present on Arrival - Present on Arrival Any Indicators Present on Arrival: No History of DVT/PE: No History of Uncontrolled Diabetes: No Urinary Catheter: No History of Decub. Ulcer: No History Surgical Site Infection Following: None - Disposition Have Diagnosis and Disposition been Completed?: Yes Diagnosis: Chest pain Disposition: HOSPITALIZED Disposition Time: 19:30 Patient Plan: Observation, Telemetry Condition: FAIR Discharge Instructions (ExitCare): Chest Pain (ED) Referrals: Juliana Corona DO [Primary Care Provider] - Follow up with primary Forms: [employer] (Polish)
[2017-08-27 14:26] LABS: BASO # 0.01 K/mm3 (0.0-2.0); BASO % 0.1 % (0.0-3.0); EOS % 0.4 % (1.5-5.0); GRAN # 7.16 (1.4-6.5); GRAN % 76.7 % (50.0-68.0); HEMATOCRIT 35.9 % (36.0-48.0); LYMPH # 1.7 (1.2-3.4); LYMPH % 17.8 % (22.0-35.0); MEAN CELL VOLUME 86.3 fl (80.0-105.0); MEAN CORPUSCULAR HEMOGLOBIN 28.6 pg (25.0-35.0); MEAN CORPUSCULAR HGB CONC 33.1 g/dl (31.0-37.0); MEAN PLATELET VOLUME 8.4 fl (7.0-11.0); MONO # 0.5 (0.1-0.6); RED CELL DISTRIBUTION WIDTH 13.5 % (11.5-14.5); WHITE BLOOD COUNT 9.3 10^3/ul (4.5-11.0)
--- NOTE | 2017-08-27 14:33 | RAD ---
HISTORY: chest tight COMPARISON: 05/22/2017 TECHNIQUE: Chest PA and lateral FINDINGS: LUNGS: No active pulmonary disease. PLEURA: No significant pleural effusion identified. No pneumothorax apparent. CARDIOVASCULAR: Normal. OSSEOUS STRUCTURES: No significant abnormalities. VISUALIZED UPPER ABDOMEN: Normal. OTHER FINDINGS: None. IMPRESSION: No active disease.
[2017-08-27 14:34] LABS: ALB/GLOB RATIO 1.3 (1.1-1.8); ALKALINE PHOSPHATASE 94 U/L (38-126); ALT/SGPT 29 U/L (7-56); AST/SGOT 19 U/L (14-36); BILIRUBIN,TOTAL 0.4 mg/dL (0.2-1.3); BLOOD UREA NITROGEN 13 mg/dL (7-21); CALCIUM 9.3 mg/dL (8.4-10.5); CARBON DIOXIDE 25 mmol/L (21-33); CHLORIDE 105 mmol/L (98-107); GFR AFRICAN-AMERICAN > 60; GLUCOSE,RANDOM 98 mg/dL (70-110); LIPASE 83 U/L (23-300); MAGNESIUM 1.8 mg/dL (1.7-2.2); POTASSIUM 3.5 mmol/L (3.6-5.0); SODIUM 142 mmol/L (132-148); TOTAL PROTEIN 7.2 g/dL (5.8-8.3)
[2017-08-27 14:38] LABS: INR 1.09 (0.93-1.08); PARTIAL THROMBOPLASTIN TIME 27.7 Seconds (23.7-30.8)
[2017-08-27 14:39] LABS: D DIMER 0.19 mg/L FEU (0-0.50)
[2017-08-27 14:51] LABS: TROPONIN I < 0.01 ng/mL
[2017-08-27] MEDS ORDERED: Potassium Chloride 40 mEq/30 ml LIQ UD PO STA (16:03)
--- NOTE | 2017-08-27 20:51 | CP.PCM.HP ---
History of Present Illness - History of Present Illness History of Present Illness: IM Note - TKS, DO, PGY - 1 CC: Headache and chest pain HPI: Patient is a 47 year old female with a past medical history of anxiety, hypertension, and peptic ulcer disease who presents to the emergency department for evaluation and treatment of a headache and chest pain. The chest pain is characterized as being a tightness localized to the left parasternal region without radiation. No specific provoking event was identified. Exacerbating factors include ambulation and is associated with fatigue and dizziness. Remitting factors include taking deep breaths. Wrt JAARMILLO, pt denies any aura, lacrimation, photophobia or phonophobia, and denies a hx of migraines. Pt further denies fever, chills, SOB, abdominal pain, N/V, diarrhea, constipation, and urinary symptoms. PMHx: anxiety, hypertension, asthma, and peptic ulcer disease PSHx: rotator cuff surgery and tubal ligation Allergies: nkda Social Hx: +Social EtOH use; denies tobacco use, denies illicits Family Hx: patient denies ROS: Constitutional: +fatigue; pt denies fever, chills, generalized weakness ENT: pt denies dysphagia, otalgia, hearing deficit, rhinorrhea Eyes: pt denies sudden loss of vision, diplopia, blurred vision MSK: pt denies muscle stiffness, joint pain, extremity cramping Cardio: +see hpi Pulm: pt denies cough, hemoptysis, wheeze, sob GI: pt denies loss of appetite, abdominal pain, constipation, melena, n/v/d : pt denies burning on urination, urinary frequency, hematuria, urinary urgency Neuro: +jaramillo, dizziness; pt denies paresis, paresthesia, numbness, tingling Derm: pt denies skin changes, lesions, nail changes Endo: pt denies intolerance to heat/cold, diaphoresis, night sweats, polydipsia Psych: pt denies anxiety, depression, mood changes Present on Admission - Present on Admission Any Indicators Present on Admission: No Past Patient History - Infectious Disease Hx of Infectious Diseases: None - Tetanus Immunizations Tetanus Immunization: Unknown - Past Social History Smoking Status: Never Smoked - CARDIAC Hx Cardiac Disorders: No - PULMONARY Hx Respiratory Disorders: Yes Other/Comment: occassionally uses inhaler with seasonal allergies - NEUROLOGICAL Hx Neurological Disorder: No - HEENT Other/Comment: reading glasses - RENAL Hx Chronic Kidney Disease: No - ENDOCRINE/METABOLIC Hx Endocrine Disorders: No - HEMATOLOGICAL/ONCOLOGICAL Hx Blood Disorders: No - INTEGUMENTARY Hx Dermatological Problems: No - MUSCULOSKELETAL/RHEUMATOLOGICAL Hx Arthritis: Yes Hx Falls: No - GASTROINTESTINAL Hx Gastroesophageal Reflux: Yes - GENITOURINARY/GYNECOLOGICAL Hx Urinary Tract Infection: Yes - PSYCHIATRIC Hx Anxiety: Yes Hx Panic Symptoms: Yes Hx Substance Use: No - SURGICAL HISTORY Other/Comment: right/left rotator cuff surgery and a tubal ligation - ANESTHESIA Hx Anesthesia: Yes Hx Anesthesia Reactions: No Hx Malignant Hyperthermia: No Meds Allergies/Adverse Reactions: Allergies Allergy/AdvReac Type Severity Reaction Status Date / Time No Known Allergies Allergy Verified 08/27/17 20:00 Physical Exam - Additional Findings Additional findings: Physical Exam Head: Present: Atraumatic, Normocephalic Pupils: Present: Extroacular Muscles intact, Conjunctiva: Normal Mouth: Present: Moist Mucous Membranes Neck: Present: Normal Range of Motion Respiratory/Chest: Present: Clear to Auscultation, Good Air Exchange. No: Respiratory Distress, Accessory Muscle Use Cardiovascular: Present: Regular Rate and Rhythm, Normal S1, S2. No: Murmurs Abdomen: Present: Normal Bowel Sounds. No: Tenderness, Distention, Peritoneal Signs Upper Extremity: Present: Normal Inspection. No: Cyanosis, Edema Lower Extremity: Present: Normal Inspection. No: Edema Neurological: Present: awake, alert, responds to verbal stimuli, answers questions appropriately and moves extremities past midline Skin: Present: Warm, Dry, Normal Color. No: Rashes Psychiatric: Present: Alert, Oriented x 3, Normal Insight, Normal Concentration Results - Vital Signs Recent Vital Signs: Last Vital Signs Temp 98 F 08/27/17 20:41 Pulse 68 08/27/17 20:41 Resp 20 08/27/17 20:41 BP 124/74 08/27/17 20:41 Pulse Ox 98 08/27/17 20:41 - Labs Result Diagrams: 08/27/17 14:21 08/27/17 14:21 Assessment & Plan - Assessment and Plan (Free Text) Assessment: Assessment and Plan: Patient is a 47 year old female with a past medical history of anxiety, hypertension, and peptic ulcer disease who is being admitted to the hospital for evaluation and treatment of a headache and chest pain. Chest Pain - rule out ACS - troponins are trending - aspirin - EKG reviewed and appreciated- NSR HR 80 QTc 449, no ST-T wave changes noted Headache - likely tension headache - tramadol PRN Hypokalemia - 3.5 noted on admit, repleted in ED - monitor closely via CMP in Am Anemia - Hgb noted at 11.9 - trended and established to be at baseline Dizziness - gui hallpikes negative - orthostatics - assistance to ambulate - consider meclizine if sxs persist Hx/O Asthma - placed on O2 via NC - consider duonebs treatment if becomes acutely sob Prophylaxis - protonix - subq heparin
[2017-08-27] MEDS ORDERED: Albuterol-Ipratrop 3 mg / 0.5 (3 ml) UD IH PRN (21:02)
[2017-08-27] MEDS ORDERED: Pneumococcal 23-Valent Vaccine IM ONE (21:25)
[2017-08-27 21:57] LABS: TROPONIN I < 0.01 ng/mL
--- NOTE | 2017-08-28 01:49 | CARD ---
APPROVED REPORT EKG Measurement Heart [id number] ID [id number] <Conclusion> Normal sinus rhythm Normal ECG
[2017-08-28 03:40] LABS: TROPONIN I < 0.01 ng/mL
[2017-08-28] MEDS: Pantoprazole 40 mg EC Tab PO SCH (05:35)
[2017-08-28 08:07] LABS: BASO # 0.01 K/mm3 (0.0-2.0); BASO % 0.1 % (0.0-3.0); EOS # 0.2 (0.0-0.7); EOS % 2.2 % (1.5-5.0); GRAN # 4.72 (1.4-6.5); GRAN % 61.7 % (50.0-68.0); HEMATOCRIT 35.8 % (36.0-48.0); LYMPH # 2.3 (1.2-3.4); LYMPH % 29.7 % (22.0-35.0); MEAN CELL VOLUME 86.7 fl (80.0-105.0); MEAN CORPUSCULAR HEMOGLOBIN 27.8 pg (25.0-35.0); MEAN CORPUSCULAR HGB CONC 32.1 g/dl (31.0-37.0); MEAN PLATELET VOLUME 8.3 fl (7.0-11.0); MONO # 0.5 (0.1-0.6); MONO % 6.3 % (1.0-6.0); RED CELL DISTRIBUTION WIDTH 13.7 % (11.5-14.5); WHITE BLOOD COUNT 7.7 10^3/ul (4.5-11.0)
[2017-08-28 08:25] LABS: ALB/GLOB RATIO 1.3 (1.1-1.8); ALKALINE PHOSPHATASE 85 U/L (38-126); ALT/SGPT 23 U/L (7-56); AST/SGOT 17 U/L (14-36); BILIRUBIN,TOTAL 0.4 mg/dL (0.2-1.3); BLOOD UREA NITROGEN 13 mg/dL (7-21); CALCIUM 8.9 mg/dL (8.4-10.5); CARBON DIOXIDE 24 mmol/L (21-33); CHLORIDE 109 mmol/L (98-107); CHOLESTEROL 178 mg/dL (130-200); GFR AFRICAN-AMERICAN > 60; GLUCOSE,RANDOM 91 mg/dL (70-110); MAGNESIUM 1.9 mg/dL (1.7-2.2); PHOSPHOROUS 3.3 mg/dL (2.5-4.5); POTASSIUM 3.8 mmol/L (3.6-5.0); SODIUM 141 mmol/L (132-148); TOTAL PROTEIN 6.4 g/dL (5.8-8.3)
[2017-08-28 08:56] LABS: TROPONIN I < 0.01 ng/mL
--- NOTE | 2017-08-28 11:42 | CP.PCM.PN ---
<Nicholas Miles - Last Filed: 08/28/17 11:33> Subjective - Date & Time of Evaluation Date of Evaluation: 08/28/17 Time of Evaluation: 07:30 - Subjective Subjective: Subjective: Patient seen and examined at bedside. Resting comfortably in bed. No acute overnight events. Patient states chest pain has improved relative to baseline. Admits to swelling under the left eye. Denies f/c/sob/abdominal pain/n/v/d/c/ urinary sxs. Physical Examination: Head: Present: Atraumatic, Normocephalic Pupils: Present: PERRL Conjunctiva: Present: Normal Mouth: Present: poor dentation, multiple dental caries noted, swelling and redness of the hard palate on the left side noted Pharnyx: Present: Normal. No: ERYTHEMA, EXUDATE Neck: Present: Normal Range of Motion Respiratory/Chest: Present: Clear to Auscultation, Good Air Exchange. No: Respiratory Distress, Accessory Muscle Use Cardiovascular: Present: Regular Rate and Rhythm, Normal S1, S2. No: Murmurs Abdomen: Present: Normal Bowel Sounds. No: Tenderness, Distention, Peritoneal Signs Upper Extremity: Present: Normal Inspection. No: Cyanosis, Edema Lower Extremity: Present: Normal Inspection. No: Edema Neurological: Present: Patient is awake, alert, responds to verbal stimuli, answers questions appropriately, follows commands, and moves extremities past midline Skin: Present: Warm, Dry, Normal Color. No: Rashes Psychiatric: Present: Alert, Oriented x 3, Normal Insight, Normal Concentration Assessment and Plan: Patient is a 47 year old female with a past medical history of anxiety, hypertension, and peptic ulcer disease who is being admitted to the hospital for evaluation and treatment of a headache and chest pain. Chest Pain - improving - troponins are negative - c/w aspirin - EKG reviewed and appreciated- NSR HR 80 QTc 449, no ST-T wave changes noted Facial Edema - CT of maxilla ordered and pending - started on clindamycin Headache - likely tension headache, band- like in nature, improving - tramadol PRN Hypokalemia - resolved - monitor closely via CMP in Am Anemia - Hgb noted at 11.9 - trended and established to be at baseline Dizziness - resolved - gui hallpikes negative - orthostatics - assistance to ambulate - consider meclizine if sxs reoccur and persist Hx/O Asthma - placed on O2 via NC - aidan consider duonebs treatment if becomes acutely sob Prophylaxis - protonix - subq heparin Patient seen, case discussed with, and plan approved by attending physician, Dr. Cobian. Objective - Vital Signs/Intake and Output Vital Signs (last 24 hours): Temp Pulse Resp BP Pulse Ox 97.5 F L 71 20 121/75 100 08/28/17 05:49 08/28/17 05:49 08/28/17 05:49 08/28/17 05:49 08/28/17 05:49 Intake and Output: 08/28/17 08/28/17 06:59 18:59 Intake Total 240 Balance 240 - Medications Medications: Current Medications Albuterol/Ipratropium (Duoneb 3 Mg/0.5 Mg (3 Ml) Ud) 3 ml IH Q4 PRN PRN Reason: Shortness of Breath Aspirin (Aspirin Chewable) 324 mg PO DAILY [facility] Heparin Sodium (Porcine) (Heparin) 5,000 units SC Q12 KARLO PRN Reason: Protocol Last Admin: 08/27/17 21:28 Dose: 5,000 units Clindamycin Phosphate 900 mg/ (Sodium Chloride) 106 mls @ 106 mls/hr IVPB Q8 KARLO PRN Reason: Protocol Pantoprazole Sodium (Protonix Ec Tab) 40 mg PO 0600 [facility] Last Admin: 08/28/17 05:35 Dose: 40 mg Tramadol HCl (Ultram) 50 mg PO Q8H PRN PRN Reason: Pain, moderate (4-7) - Labs Labs: 08/28/17 07:50 08/28/17 07:50 PT 11.8 Seconds (9.9-11.8) 08/27/17 14:21 INR 1.09 (0.93-1.08) H 08/27/17 14:21 APTT 27.7 Seconds (23.7-30.8) 08/27/17 14:21 <Jose Cobian - Last Filed: 08/28/17 13:53> Objective - Vital Signs/Intake and Output Vital Signs (last 24 hours): Temp Pulse Resp BP Pulse Ox 97.1 F L 76 21 141/95 H 100 08/28/17 12:00 08/28/17 12:00 08/28/17 12:00 08/28/17 12:00 08/28/17 05:49 Intake and Output: 08/28/17 08/28/17 06:59 18:59 Intake Total 240 Balance 240 - Medications Medications: Current Medications Albuterol/Ipratropium (Duoneb 3 Mg/0.5 Mg (3 Ml) Ud) 3 ml IH Q4 PRN PRN Reason: Shortness of Breath Aspirin (Aspirin Chewable) 324 mg PO DAILY [facility] Last Admin: 08/28/17 13:18 Dose: 324 mg Heparin Sodium (Porcine) (Heparin) 5,000 units SC Q12 KARLO PRN Reason: Protocol Last Admin: 08/28/17 13:18 Dose: 5,000 units Clindamycin Phosphate 900 mg/ (Sodium Chloride) 106 mls @ 106 mls/hr IVPB Q8 KARLO PRN Reason: Protocol Pantoprazole Sodium (Protonix Ec Tab) 40 mg PO 0600 [facility] Last Admin: 08/28/17 05:35 Dose: 40 mg Tramadol HCl (Ultram) 50 mg PO Q8H PRN PRN Reason: Pain, moderate (4-7) Last Admin: 08/28/17 13:19 Dose: 50 mg - Labs Labs: 08/28/17 07:50 08/28/17 07:50 PT 11.8 Seconds (9.9-11.8) 08/27/17 14:21 INR 1.09 (0.93-1.08) H 08/27/17 14:21 APTT 27.7 Seconds (23.7-30.8) 08/27/17 14:21 Attending/Attestation - Attestation I have personally seen and examined this patient.: Yes I have fully participated in the care of the patient.: Yes I have reviewed all pertinent clinical information, including history, physical exam and plan: Yes Notes (Text): 08/28/17 13:48 attending note; Patient seen and examined with resident. Patient is a 47-year-old female With a past medical history of anxiety, peptic ulcer disease, asthma is admitted with chest pain. Currently not in any distress. Denies any chest pain or palpitation. Cardiac enzymes negative. EKG normal. Cardiology evaluation appreciated. Plan for stress test tomorrow. left facial swelling; patient with a history of multiple dental caries and abscess. CT showed no dental abscess. Patient needs outpatient follow-up. Left maxillary sinusitis;Started on IV clindamycin. Possible discharge home tomorrow after the stress test. 08/28/17 13:52 08/28/17 13:53
--- NOTE | 2017-08-28 12:08 | CT ---
PROCEDURE: CT MAXILLOFACIAL BONES WITHOUT CONTRAST HISTORY: LEFT FACE SWELLING, R/O DENTAL ABSCESS, SINUSITIS COMPARISON: None TECHNIQUE: Contiguous axial CT images of the maxillofacial bones were obtained. Coronal and sagittal reformats were generated. Radiation dose: Total exam DLP = 716 mGy-cm. This CT exam was performed using one or more of the following dose reduction techniques: Automated exposure control, adjustment of the mA and/or kV according to patient size, and/or use of iterative reconstruction technique. FINDINGS: NASAL BONES: Unremarkable. ORBITS: Unremarkable. PARANASAL SINUSES/ MASTOIDS: Clear. MAXILLA: There is mucosal thickening in the inferior aspect of the left maxillary sinus MANDIBLE/ TEMPOROMANDIBULAR JOINTS: Unremarkable. SKULL BASE: Unremarkable. TEMPORAL BONES: Middle ears and mastoid grossly unremarkable. OTHER FINDINGS: Both parotid ducts are dilated. There are no obvious stones. IMPRESSION: Dilated parotid ducts bilaterally. Significance uncertain. No evidence of stone. No evidence of dental abscess.
--- NOTE | 2017-08-28 13:46 | CON ---
DATE: 08/28/2017 CONSULTATION/INDICATIONS: Chest pain. HISTORY OF PRESENT ILLNESS: This is a 47-year-old woman admitted yesterday through the Emergency Room when she presented with chest pain, which was a tight feeling in the mid chest, which was present most of the day and got worse, as the day went on. It did not radiate and it was not associated with shortness of breath or diaphoresis. She was admitted to telemetry. There is no evidence of acute ischemia or myocardial infarction or arrhythmia so far. This morning, she has very mild residual chest pain, but much improved as compared to yesterday. There was also headache reported, but no shortness of breath, orthopnea, PND, syncope, presyncope, lightheadedness, dizziness, vertigo, palpitations, edema, or claudication. No fever, chills, cough, sputum production, or hemoptysis. No abdominal pain, nausea, vomiting, diarrhea, constipation, or melena. PAST MEDICAL HISTORY: Notable for anxiety, hypertension, asthma, and peptic ulcer disease. She has previously seen admitted to [facility] with chest pain. In 2015, she underwent a negative nuclear stress test. In January of 2017, she had an unremarkable echocardiogram. There was no history of rheumatic fever, myocardial infarction, congestive heart failure, stroke, TIA, diabetes or gout. PAST SURGICAL HISTORY: She had recent surgery on her left shoulder, prior shoulder surgery, and tubal ligation. MEDICATIONS: At the time of admission, Proventil and Tramadol. CURRENT MEDICATIONS: Include aspirin, albuterol, subcutaneous heparin, Protonix, Reglan, Tramadol, Xanax, and Zofran p.r.n. SOCIAL HISTORY: She lives at home. She is ambulatory. She does not smoke. She does not drink. FAMILY HISTORY: Notable for heart disease. REVIEW OF SYSTEMS: A 10-point review of systems is otherwise unremarkable except as noted above. PHYSICAL EXAMINATION GENERAL: She is well-developed woman, lying in bed, on telemetry, in no acute distress. VITAL SIGNS: She is in sinus rhythm at 71 beats per minute, she is afebrile, blood pressure is 121/75, respirations are 16 to 20, and O2 saturation is 98% to 100% on room air. HEENT: Reveals no neck vein distention, thyromegaly, or carotid bruits. Mucous membranes are moist. Conjunctivae are pink. NECK: Supple. LUNGS: Lung howell clear. CARDIOVASCULAR: Examination of heart reveals normal first and second heart sounds without murmur, gallop, rub, or click. ABDOMEN: Soft. Bowel sounds present. No mass, organomegaly, tenderness, rebound, or guarding. No CVA tenderness. No palpable abdominal aortic aneurysm. EXTREMITIES: Reveals no cyanosis, clubbing, or edema. NEUROLOGIC: She is awake, alert, and oriented. SKIN: Warm and dry. No rash or cellulitis. LABORATORY AND IMAGING DATA: The chest x-ray reveals no active disease. EKG demonstrates regular sinus rhythm and is within normal limits. Repeat EKG today is also unremarkable. CBC is unremarkable. Hemoglobin of 11.5 and hematocrit of 35.8. PT, INR, PTT and D-dimer are unremarkable. Electrolytes: BUN and creatinine are unremarkable. Initial potassium of 3.5 and today is 3.8. LFTs are unremarkable. Troponins are negative x4. CK is negative x4. Lipids are unremarkable. LDL is 114 and lipase is 83. TSH is normal. Urinalysis is unremarkable. IMPRESSION: Jade Cortez is a 47-year-old woman admitted with chest pain, which has some typical features, but is not associated with electrocardiogram changes, arrhythmia, or abnormality in her cardiac enzymes. PLAN: I have discussed the case with Dr. Cobian, she can be out of bed and ambulate. I will arrange for a nuclear stress test probably tomorrow, it could be on an outpatient basis. However, because of persisting pain, we might elect to keep her in for a nuclear stress test. Potassium has been replaced. She is on aspirin. She is getting subcutaneous heparin. Lower extremity venous Dopplers have been ordered. I will follow along with you. I will make additional recommendations based on her clinical course. Moody Key MD MTDAron
--- NOTE | 2017-08-28 18:33 | US ---
HISTORY: Leg pain and swelling. Evaluate for DVT PHYSICIAN(S): Keagan Harvey MD. TECHNIQUE: Duplex sonography and color-flow Doppler with graded compression were used to evaluate the deep venous systems of both lower extremities. FINDINGS: The visualized deep venous systems of both lower extremities are sonographically normal and compressible. Normal wave forms and augmentation are seen. There is no sonographic evidence for deep venous thrombosis in the visualized segments of both lower extremities. IMPRESSION: No sonographic evidence for deep venous thrombosis in the visualized segments of both lower extremities.
[2017-08-28] MEDS ORDERED: Morphine 4 mg/ml ISec IVP PRN (23:17)
[2017-08-28] MEDS ORDERED: Morphine 2 mg/ml ISec IVP PRN (23:26)
[2017-08-28] MEDS: Morphine 2 mg/ml ISec IVP PRN (23:32)
[2017-08-29 01:11] VITALS: O2SAT 98
[2017-08-29] MEDS: Pantoprazole 40 mg EC Tab PO SCH (05:05)
[2017-08-29] MEDS: Morphine 2 mg/ml ISec IVP PRN ×3 (05:09→21:06)
[2017-08-29 06:25] LABS: BASO # 0.01 K/mm3 (0.0-2.0); BASO % 0.1 % (0.0-3.0); EOS # 0.1 (0.0-0.7); EOS % 1.8 % (1.5-5.0); GRAN # 4.37 (1.4-6.5); GRAN % 59.7 % (50.0-68.0); HEMATOCRIT 34.7 % (36.0-48.0); LYMPH # 2.3 (1.2-3.4); LYMPH % 30.8 % (22.0-35.0); MEAN CELL VOLUME 87.2 fl (80.0-105.0); MEAN CORPUSCULAR HEMOGLOBIN 27.9 pg (25.0-35.0); MEAN PLATELET VOLUME 8.6 fl (7.0-11.0); MONO # 0.6 (0.1-0.6); MONO % 7.6 % (1.0-6.0); RED CELL DISTRIBUTION WIDTH 13.5 % (11.5-14.5); WHITE BLOOD COUNT 7.3 10^3/ul (4.5-11.0)
[2017-08-29 06:51] LABS: ALB/GLOB RATIO 1.2 (1.1-1.8); ALKALINE PHOSPHATASE 82 U/L (38-126); ALT/SGPT 30 U/L (7-56); AST/SGOT 21 U/L (14-36); BILIRUBIN,TOTAL 0.4 mg/dL (0.2-1.3); BLOOD UREA NITROGEN 14 mg/dL (7-21); CALCIUM 9.1 mg/dL (8.4-10.5); CARBON DIOXIDE 28 mmol/L (21-33); CHLORIDE 103 mmol/L (95-110); GFR AFRICAN-AMERICAN > 60; GLUCOSE,RANDOM 93 mg/dL (70-110); MAGNESIUM 1.9 mg/dL (1.7-2.2); POTASSIUM 3.6 mmol/L (3.6-5.0); SODIUM 140 mmol/L (132-148); TOTAL PROTEIN 6.4 g/dL (5.8-8.3)
[2017-08-29] MEDS ORDERED: Aminophylline 25 mg/ml Inj ONE (07:31)
--- NOTE | 2017-08-29 08:45 | CP.PCM.PN ---
Subjective - Date & Time of Evaluation Date of Evaluation: 08/29/17 Time of Evaluation: 07:00 - Subjective Subjective: Stable on 2R. No CP or SOB. + left facial pain > max. sinusitis V/S noted. RSR PE: Lungs: clear Cor.: S1S2 Abd.: soft Ext.: no edema Neuro.: alert LE venous Dopplers noted: No DVT Labs noted. ECG 08/28: RSR, No change Objective - Vital Signs/Intake and Output Vital Signs (last 24 hours): Temp Pulse Resp BP Pulse Ox 98.3 F 73 20 104/75 98 08/29/17 06:00 08/29/17 06:00 08/29/17 06:00 08/29/17 06:00 08/29/17 06:00 Intake and Output: 08/29/17 08/29/17 06:59 18:59 Intake Total 200 Balance 200 - Medications Medications: Current Medications Albuterol/Ipratropium (Duoneb 3 Mg/0.5 Mg (3 Ml) Ud) 3 ml IH Q4 PRN PRN Reason: Shortness of Breath Aspirin (Aspirin Chewable) 324 mg PO DAILY [facility] Last Admin: 08/28/17 13:18 Dose: 324 mg Heparin Sodium (Porcine) (Heparin) 5,000 units SC Q12 KARLO PRN Reason: Protocol Last Admin: 08/28/17 21:00 Dose: 5,000 units Clindamycin Phosphate 900 mg/ (Sodium Chloride) 106 mls @ 106 mls/hr IVPB Q8 KARLO PRN Reason: Protocol Last Admin: 08/29/17 05:04 Dose: 106 mls/hr Morphine Sulfate (Morphine) 2 mg IVP Q4H PRN PRN Reason: Pain, severe (8-10) Last Admin: 08/29/17 05:09 Dose: 2 mg Pantoprazole Sodium (Protonix Ec Tab) 40 mg PO 0600 [facility] Last Admin: 08/29/17 05:05 Dose: Not Given Tramadol HCl (Ultram) 50 mg PO Q8H PRN PRN Reason: Pain, moderate (4-7) Last Admin: 08/28/17 13:19 Dose: 50 mg - Labs Labs: 08/29/17 06:15 08/29/17 06:15 PT 11.8 Seconds (9.9-11.8) 08/27/17 14:21 INR 1.09 (0.93-1.08) H 08/27/17 14:21 APTT 27.7 Seconds (23.7-30.8) 08/27/17 14:21 Assessment and Plan - Assessment and Plan (Free Text) Assessment: Chest Pain/JARAMILLO/Facial Pain Anxiety Asthma PUD Shoulder Surgeries Plan: Case d/w Dr. Cobian yesterday. Stress test today AB Dental Evaluation OOB
--- NOTE | 2017-08-29 14:04 | CP.PCM.DIS ---
Provider - Provider Date of Admission: 08/27/17 19:45 Attending physician: Jose Cobian MD Primary care physician: Juliana Corona DO Time Spent in preparation of Discharge (in minutes): 30 Diagnosis - Discharge Diagnosis (1) Swelling Status: Acute Priority: Medium (2) Chest pain Status: Acute Priority: Medium Hospital Course - Lab Results Lab Results: Most Recent Lab Values WBC 7.3 10^3/ul (4.5-11.0) 08/29/17 06:15 RBC 3.98 10^6/uL (3.5-6.1) 08/29/17 06:15 Hgb 11.1 g/dL (12.0-16.0) L 08/29/17 06:15 Hct 34.7 % (36.0-48.0) L 08/29/17 06:15 MCV 87.2 fl (80.0-105.0) 08/29/17 06:15 MCH 27.9 pg (25.0-35.0) 08/29/17 06:15 MCHC 32.0 g/dl (31.0-37.0) 08/29/17 06:15 RDW 13.5 % (11.5-14.5) 08/29/17 06:15 Plt Count 357 10^3/uL (120.0-450.0) 08/29/17 06:15 MPV 8.6 fl (7.0-11.0) 08/29/17 06:15 Gran % 59.7 % (50.0-68.0) 08/29/17 06:15 Lymph % (Auto) 30.8 % (22.0-35.0) 08/29/17 06:15 [place] % (Auto) 7.6 % (1.0-6.0) H 08/29/17 06:15 Eos % (Auto) 1.8 % (1.5-5.0) 08/29/17 06:15 Baso % (Auto) 0.1 % (0.0-3.0) 08/29/17 06:15 Gran # 4.37 (1.4-6.5) 08/29/17 06:15 Lymph # 2.3 (1.2-3.4) 08/29/17 06:15 [place] # 0.6 (0.1-0.6) 08/29/17 06:15 Eos # 0.1 (0.0-0.7) 08/29/17 06:15 Baso # 0.01 K/mm3 (0.0-2.0) 08/29/17 06:15 PT 11.8 Seconds (9.9-11.8) 08/27/17 14:21 INR 1.09 (0.93-1.08) H 08/27/17 14:21 APTT 27.7 Seconds (23.7-30.8) 08/27/17 14:21 D-Dimer, Quantitative 0.19 mg/L FEU (0-0.50) 08/27/17 14:21 Sodium 140 mmol/L (132-148) 08/29/17 06:15 Potassium 3.6 mmol/L (3.6-5.0) 08/29/17 06:15 Chloride 103 mmol/L (95-110) 08/29/17 06:15 Carbon Dioxide 28 mmol/L (21-33) 08/29/17 06:15 Anion Gap 13 (10-20) 08/29/17 06:15 BUN 14 mg/dL (7-21) 08/29/17 06:15 Creatinine 0.7 mg/dL (0.7-1.2) 08/29/17 06:15 Est GFR ( Amer) > 60 08/29/17 06:15 Est GFR (Non-Af Amer) > 60 08/29/17 06:15 Random Glucose 93 mg/dL (70-110) 08/29/17 06:15 Hemoglobin A1c 5.6 % (4.2-6.5) 08/28/17 07:50 Calcium 9.1 mg/dL (8.4-10.5) 08/29/17 06:15 Phosphorus 4.0 mg/dL (2.5-4.5) 08/29/17 06:15 Magnesium 1.9 mg/dL (1.7-2.2) 08/29/17 06:15 Total Bilirubin 0.4 mg/dL (0.2-1.3) 08/29/17 06:15 AST 21 U/L (14-36) 08/29/17 06:15 ALT 30 U/L (7-56) 08/29/17 06:15 Alkaline Phosphatase 82 U/L (38-126) 08/29/17 06:15 Lactate Dehydrogenase 301 U/L (333-699) L 08/28/17 07:50 Total Creatine Kinase 29 U/L (35-230) L 08/28/17 07:50 Troponin I < 0.01 ng/mL 08/28/17 07:50 NT-Pro-B Natriuret Pep 35.7 pg/mL (0-450) 08/27/17 14:21 Total Protein 6.4 g/dL (5.8-8.3) 08/29/17 06:15 Albumin 3.5 g/dL (3.0-4.8) 08/29/17 06:15 Globulin 2.9 gm/dL 08/29/17 06:15 Albumin/Globulin Ratio 1.2 (1.1-1.8) 08/29/17 06:15 Triglycerides 113 mg/dL (35-160) 08/28/17 07:50 Cholesterol 178 mg/dL (130-200) 08/28/17 07:50 LDL Cholesterol Direct 114 mg/dL (0-129) 08/28/17 07:50 HDL Cholesterol 51 mg/dL (29-60) 08/28/17 07:50 Lipase 83 U/L (23-300) 08/27/17 14:21 TSH 3rd Generation 1.56 mIU/mL (0.46-4.68) 08/28/17 07:50 Urine Color Yellow (YELLOW) 08/27/17 13:51 Urine Appearance Clear (CLEAR) 08/27/17 13:51 Urine pH 6.0 (4.7-8.0) 08/27/17 13:51 Ur Specific [place] 1.020 (1.005-1.035) 08/27/17 13:51 Urine Protein Negative mg/dL (<30 mg/dL) 08/27/17 13:51 Urine Glucose (UA) Negative mg/dL (NEGATIVE) 08/27/17 13:51 Urine Ketones Negative mg/dL (NEGATIVE) 08/27/17 13:51 Urine Blood Negative (NEGATIVE) 08/27/17 13:51 Urine Nitrate Negative (NEGATIVE) 08/27/17 13:51 Urine Bilirubin Negative (NEGATIVE) 08/27/17 13:51 Urine Urobilinogen 0.2 E.U./dL (<1 E.U./dL) 08/27/17 13:51 Ur Leukocyte Esterase Negative Ruddy/uL (NEGATIVE) 08/27/17 13:51 - Hospital Course Hospital Course: Patient is a 47 year old female with a past medical history of anxiety, hypertension, and peptic ulcer disease who was admitted to the hospital for evaluation and treatment of a headache and chest pain. With the use of physical examinations, lab work, and imaging the patient was diagnosed with atypical chest pain and left sided facial edema secondary to sinus vs. dental infection. During their hospital stay the patient was seen by cardiology and their recommendations were appreciated. During their hospital stay the patient underwent a maxillofacial CT scan, myocardial stress test, and extremity ultrasound. The results were reviewed and utilized in managing the patients clinical course. At this time the patient is medically stable for discharge. Patient understands and appreciates discharge plan. Patient instructed to follow up with primary care physicians, her dentist, and referrals within three to five days from discharge. Furthermore, the patient is instructed to take medications as prescribed and to return to emergency room for evaluation of intractable headache, fever, chills, dizziness, chest pain, shortness of breath, abdominal pain, nausea, vomiting, diarrhea, constipation, and urinary symptoms. This is a brief summary of the patients hospital course. Please see patient chart for full details. Discharge Exam - Additional Findings Additional findings: Head: Present: Atraumatic, Normocephalic Pupils: Present: PERRL Conjunctiva: Present: Normal Mouth: Present: poor dentation, multiple dental caries noted, swelling and redness of the hard palate on the left side noted- improved from baseline Pharnyx: Present: Normal. No: ERYTHEMA, EXUDATE Neck: Present: Normal Range of Motion Respiratory/Chest: Present: Clear to Auscultation, Good Air Exchange. No: Respiratory Distress, Accessory Muscle Use Cardiovascular: Present: Regular Rate and Rhythm, Normal S1, S2. No: Murmurs Abdomen: Present: Normal Bowel Sounds. No: Tenderness, Distention, Peritoneal Signs Upper Extremity: Present: Normal Inspection. No: Cyanosis, Edema Lower Extremity: Present: Normal Inspection. No: Edema Neurological: Present: Patient is awake, alert, responds to verbal stimuli, answers questions appropriately, follows commands, and moves extremities past midline Skin: Present: Warm, Dry, Normal Color. No: Rashes Psychiatric: Present: Alert, Oriented x 3, Normal Insight, Normal Concentration Discharge Plan - Discharge Medications Prescriptions: Albuterol HFA [Ventolin HFA 90 mcg/actuation (8 g)] 1 puff IH Q6 #1 puff Clindamycin [Clindamycin HCl] 600 mg PO TID #15 cap traMADol [Ultram] 50 mg PO TID #12 tab - Follow Up Plan Condition: FAIR Disposition: HOME/ ROUTINE Patient education suggested?: Yes Additional Instructions: Patient Instructions: Take medications as prescribed. Follow up with PMD, dentist, and referrals within three to five days from discharge. Return to emergency room for evaluation of intractable headache, fever, chills, dizziness, chest pain, shortness of breath, abdominal pain, nausea, vomiting, diarrhea, constipation, and urinary symptoms. Referrals: Juliana Corona DO [Primary Care Provider] - Moody Key MD [Staff Provider] -
[2017-08-29 19:05] VITALS: BP 135/87; PULSE 68; RESP 18; TEMP 98.1
--- NOTE | 2017-08-29 21:52 | CARD ---
APPROVED REPORT Protocol: LEXISCAN Test Type: Lexiscan Sestamibi Stress Test Attending Physician: Dr. Moody Key Referring Physician: Dr. Juliana Corona Test Indications: Chest Pain. Height:5 ft 1 in Weight:159lbs Medications: Aspirin, Cleocin, Duoneb, Heparin, Morphine, Protonix, Ultram Medical History: 47 y/o woman with chest pain. Target HR: 174 bpm Resting ECG: RSR Resting Heart Rate: 94 bpm Resting Blood Pressure: 112/80mmHg Submaximum (85%): 148 bpm PROCEDURE Pharmacologic stress testing was performed using 0.4mg per 5ml of regadenoson given intravenously over 7-10 seconds. POST EXERCISE Reason for Termination: Protocol completed Target HR: No Max HR: 109 bpm 77% of Maximum Predicted HR: 174 bpm Exercise duration: 05:07 min:sec, 0 Stage Exercise capacity: 1.0METs Max Blood Pressure: 134/70mmHg Blood Pressure response to exercise: normal resting BP - appropriate response Heart Rate response to exercise: appropriate Chest Pain: Yes, mild Angina index: 0 Arrhythmia: No, none ST Change: No, none Deviation: 0 mm TEST SUMMARY [id number]/80.0. INFUSIONDOSE 101:000.00.01.0112/.0.00:26 Iris inj over 10 sec., Kong. inj. at 25 sec. INFUSIONDOSE 201:000.00.01.0130/.0. INFUSIONDOSE 301:[id number]/70.0. INFUSIONDOSE 401:000.00.01.0111/.0. INFUSIONDOSE 501:000.00.01.0107/.0. INFUSIONDOSE 600:060.00.01.0109/.0. INTERPRETATION Stress EKG Conclusion: Lexiscan nuclear stress test which was positive for mild chest pain but negative for ischemia and arrhythmia. Nuclear scans pending. Signed by Moody Key Electronically Approved: 08/29/2017 12:37:19 EXAM: Myocardial Perfusion REST/STRESS Stress Test Type: Pharmacologic Imaging Protocol Stress Spect myocardial perfusion imaging was performed in supine position 60 minutes following the injection of 10.4 mCi of Tc-99 Myoview. At peak stress, the patient was injected intravenously with 30.7mCi of Tc-99 tetrofosmin after an infusion time of 0 minutes and 10 seconds. Gated Stress Spect was performed 80 minutes after intravenous Tc-99 Myoview injection. The images were gated to evaluate regional wall motion and calculate ventricular ejection fraction.Images were reconstructed using backfilter projection method in short horizontal and verticle long axis. Spect slices were generated. LV Perfusion The quality of the study is good. The left ventricle is normal in size. The right ventricle is unremarkable. The lung uptake is normal. The distribution of tracer reveals mildly and diffusely decreased perfusion involving anterior wall on the stress study. The remainder of the LV myocardium is unremarkable. The rest myocardial perfusion study shows no significant change. Wall Motion Wall motion study shows good contractility of the left ventricle. LVEF = 75%. Conclusion 1. Essentially normal SPECT myocardial perfusion study. 2. Fixed, anterior defect is most likely due to breast attenuation. 3. Normal gated wall motion of the left ventricle. 4. In comparison with the last study of 11/28/2015, there is no significant change.
== END 2017-08-29 21:58 | disposition home or self-care (01) ==
LOC: ED 13:22 → ERH 19:45 → 2RNO 20:36
PROVIDERS: ADMIT Internal Medicine; ATTEND Internal Medicine
DX: R07.89 Other chest pain (principal); R51 Headache; J32.0 Chronic maxillary sinusitis; K21.9 Gastro-esophageal reflux disease without esophagitis; J45.909 Unspecified asthma, uncomplicated; I10 Essential (primary) hypertension; K02.9 Dental caries, unspecified; R60.9 Edema, unspecified; E87.6 Hypokalemia; D64.9 Anemia, unspecified; K27.9 Peptic ulcer, site unspecified, unspecified as acute or chronic, without hemorrhage or perforation; R42 Dizziness and giddiness; F41.9 Anxiety disorder, unspecified; Z87.440 Personal history of urinary (tract) infections
CPT/HCPCS: 36415; 70486; 71020; 78452; 80053; 80061; 81003; 82550; 83036; 83615; 83690; 83735; 83880; 84100; 84443; 84484; 85025; 85378; 85610; 85730; 93005; 93017; 93970; 96365; 96366; 96372; 96375; 96376; 99285; A9502; C9113; G0378; J1644; J1885; J2270; J2405; J2765; J2785; J3480

== ENCOUNTER 2018-07-19 21:43 | Emergency (ER) | payer OTHER ==
[2018-07-19 21:57] VITALS: BMI 33.2
--- NOTE | 2018-07-19 22:15 | ED PDOC ---
Arrival/HPI - General Chief Complaint: Chest Pain Time Seen by Provider: 07/19/18 21:44 Historian: Patient - History of Present Illness Narrative History of Present Illness (Text): 07/19/18 22:05 Jade Cortez is a 48 year old female, whose past medical history includes anxiety, asthma, and peptic ulcer disease, who presents to the Emergency department complaining of episode of palpitations and ? vague chest discomfort since earlier tonight. Patient notes she has poor sleeping habits recently. Patient denies any fever, chills, shortness of breath, nausea, vomiting, diarrhea, urinary symptoms, back pain, neck pain, headache, dizziness, tobacco abuse, or any other complaints. Symptom Onset: Gradual Symptom Course: Unchanged Activities at Onset: Light Context: Home Past Medical History - Provider Review Nursing Documentation Reviewed: Yes - Past History Past History: Non-Contributing - Infectious Disease Hx of Infectious Diseases: None - Tetanus Immunization Tetanus Immunization: Unknown - Past Medical History Past Medical History: No Previous - Cardiac Hx Cardiac Disorders: No - Pulmonary Hx Respiratory Disorders: Yes Hx Asthma: Yes Other/Comment: occassionally uses inhaler with seasonal allergies - Neurological Hx Neurological Disorder: No - HEENT Hx HEENT Disorder: Yes Other/Comment: reading glasses - Renal Hx Renal Disorder: No - Endocrine/Metabolic Hx Endocrine Disorders: No - Hematological/Oncological Hx Blood Disorders: No - Integumentary Hx Dermatological Disorder: No - Musculoskeletal/Rheumatological Hx Musculoskeletal Disorders: Yes Hx Arthritis: Yes Hx Falls: No Other/Comment: rotator cuff sx bilateral - Gastrointestinal Hx Gastrointestinal Disorders: Yes Hx Gastroesophageal Reflux: Yes - Genitourinary/Gynecological Hx Genitourinary Disorders: Yes Hx Urinary Tract Infection: Yes - Psychiatric Hx Psychophysiologic Disorder: Yes Hx Anxiety: Yes Hx Panic Disorder: Yes Hx Substance Use: No - Past Surgical History Past Surgical History: No Previous - Surgical History Other/Comment: right/left rotator cuff surgery and a tubal ligation - Anesthesia Hx Anesthesia: Yes Hx Anesthesia Reactions: No Hx Malignant Hyperthermia: No - Suicidal Assessment Feels Threatened In Home Enviroment: No Family/Social History - Physician Review Nursing Documentation Reviewed: Yes Family/Social History: Unknown Family HX Smoking Status: Never Smoked Hx Alcohol Use: No Hx Substance Use: No Hx Substance Use Treatment: No Allergies/Home Meds Allergies/Adverse Reactions: Allergies No Known Allergies Allergy (Verified 08/27/17 20:00) Home Medications: Home Meds Medication Instructions Recorded Confirmed Alprazolam [Xanax] 1 tab PO PRN PRN 07/19/18 07/19/18 Omeprazole [Omeprazole] 1 cap PO DAILY 07/19/18 07/19/18 Review of Systems - Physician Review All systems were reviewed & negative as marked: Yes - Review of Systems Constitutional: Normal. absent: Fevers Eyes: Normal ENT: Normal Respiratory: Normal. absent: SOB, Cough Cardiovascular: Chest Pain, Palpitations Gastrointestinal: Normal. absent: Abdominal Pain, Diarrhea, Nausea, Vomiting Genitourinary Female: Normal. absent: Dysuria, Frequency, Hematuria, Urine Output Changes Musculoskeletal: Normal. absent: Back Pain, Neck Pain Skin: Normal. absent: Rash Neurological: Normal. absent: Headache, Dizziness Endocrine: Normal Hemo/Lymphatic: Normal Psychiatric: Normal Physical Exam Vital Signs Reviewed: Yes Vital Signs Temp Pulse Resp BP Pulse Ox 07/19/18 21:57 98.3 F 93 H 18 122/73 99 Temperature: Afebrile Blood Pressure: Normal Pulse: Regular Respiratory Rate: Normal Appearance: Positive for: Well-Appearing, Non-Toxic, Comfortable Pain Distress: None Mental Status: Positive for: Alert and Oriented X 3 - Systems Exam Head: Present: Atraumatic, Normocephalic Pupils: Present: PERRL Extroacular Muscles: Present: EOMI Conjunctiva: Present: Normal Mouth: Present: Moist Mucous Membranes Neck: Present: Normal Range of Motion Respiratory/Chest: Present: Clear to Auscultation, Good Air Exchange. No: Respiratory Distress, Accessory Muscle Use Cardiovascular: Present: Regular Rate and Rhythm, Normal S1, S2. No: Murmurs Abdomen: No: Tenderness, Distention, Peritoneal Signs Back: Present: Normal Inspection Upper Extremity: Present: Normal Inspection. No: Cyanosis, Edema Lower Extremity: Present: Normal Inspection. No: Edema Neurological: Present: GCS=15, CN II-XII Intact, Speech Normal Skin: Present: Warm, Dry, Normal Color. No: Rashes Psychiatric: Present: Alert, Oriented x 3, Normal Insight, Normal Concentration Medical Decision Making ED Course and Treatment: 07/19/18 22:05 Impression: 48 year old female complaining of palpitations and vague chest discomfort. Plan: -- EKG -- Chest X-ray -- Labs, cardiac enzymes -- Reassess and disposition Prior Visits: Notes and results from previous visits were reviewed. Progress Notes: Reviewed EKG, NSR at [address]-segment elevations or depressions, no T-wave inversions, normal intervals. 07/19/18 22:48 Chest X-ray reviewed, shows no acute processes. 07/20/18 00:54 On re-evaluation, patient feels better and is in no acute distress. I have discussed the results and plan with the patient, who expresses understanding. Patient in agreement with plan to be discharged home. Patient is stable for discharge. Patient was instructed to follow up with physician or return if symptoms worsen or new concerning symptoms arise. - Lab Interpretations Lab Results: 07/19/18 22:20 07/19/18 22:20 Lab Results 07/19/18 22:20: WBC 10.5 D, RBC 4.09, Hgb 11.4 L, Hct 34.2 L, MCV 83.6 D, MCH 27.9, MCHC 33.3, RDW 14.4, Plt Count 360, MPV 8.5 07/19/18 22:20: Sodium 142, Potassium 3.6, Chloride 107, Carbon Dioxide 23, Anion Gap 15, BUN 16, Creatinine 0.6 L, Est GFR ( Amer) > 60, Est GFR ( Non-Af Amer) > 60, Random Glucose 142 H, Calcium 9.2, Total Bilirubin 0.2, AST 20, ALT 33, Alkaline Phosphatase 105, Lactate Dehydrogenase 381, Total Creatine Kinase 37, Troponin I < 0.01, Total Protein 7.2, Albumin 4.0, Globulin 3.2, Albumin/Globulin Ratio 1.2 07/19/18 22:20: PT 13.2 H, INR 1.15, APTT 23.5 L - RAD Interpretation Radiology Orders: 07/19/18 22:20 CHEST PORTABLE [RAD] Stat Floorworker Distributor: ED Physician - EKG Interpretation Interpreted by ED Physician: Yes Type: 12 lead EKG - Scribe Statement The provider has reviewed the documentation as recorded by the Zoila Pantoja Provider Scribe Attestation: All medical record entries made by the Scribe were at my direction and personally dictated by me. I have reviewed the chart and agree that the record accurately reflects my personal performance of the history, physical exam, medical decision making, and the department course for this patient. I have also personally directed, reviewed, and agree with the discharge instructions and disposition. Disposition/Present on Arrival - Present on Arrival Any Indicators Present on Arrival: No History of DVT/PE: No History of Uncontrolled Diabetes: No Urinary Catheter: No History of Decub. Ulcer: No History Surgical Site Infection Following: None - Disposition Have Diagnosis and Disposition been Completed?: Yes Diagnosis: Palpitations Disposition: HOME/ ROUTINE Disposition Time: 00:54 Patient Plan: Discharge Patient Problems: Current Active Problems Problem Status Onset Palpitations Acute Condition: STABLE Discharge Instructions (ExitCare): Palpitations (DC) Additional Instructions: Get proper rest/avoid caffeinated beverages/follow up with your doctor this week Referrals: Juliana Corona DO [Primary Care Provider] - Follow up with primary Forms: [employer] (Divehi)
[2018-07-19 23:15] LABS: HEMOGLOBIN 11.4 g/dL (12.0-16.0); MEAN CELL VOLUME 83.6 fl (80.0-105.0); MEAN CORPUSCULAR HEMOGLOBIN 27.9 pg (25.0-35.0); MEAN CORPUSCULAR HGB CONC 33.3 g/dl (31.0-37.0); MEAN PLATELET VOLUME 8.5 fl (7.0-11.0); RBC 4.09 10^6/uL (3.5-6.1); RED CELL DISTRIBUTION WIDTH 14.4 % (11.5-14.5); WHITE BLOOD COUNT 10.5 10^3/ul (4.5-11.0)
[2018-07-19 23:19] LABS: INR 1.15; PARTIAL THROMBOPLASTIN TIME 23.5 Seconds (25.1-36.5); PROTHROMBIN TIME 13.2 SECONDS (9.4-12.5)
[2018-07-19 23:21] LABS: ALB/GLOB RATIO 1.2 (1.1-1.8); ALT/SGPT 33 U/L (7-56); AST/SGOT 20 U/L (14-36); BLOOD UREA NITROGEN 16 mg/dL (7-21); CALCIUM 9.2 mg/dL (8.4-10.5); GFR NON-AFRICAN AMERICAN > 60
[2018-07-19 23:32] LABS: TROPONIN I < 0.01 ng/mL
[2018-07-20 01:11] VITALS: BP 116/78; PULSE 89; RESP 16; TEMP 98.2; O2SAT 100
--- NOTE | 2018-07-20 09:41 | RAD ---
Date of service: 07/19/2018 HISTORY: palpitations COMPARISON: 09/06/2017 FINDINGS: LUNGS: No active pulmonary disease. PLEURA: No significant pleural effusion identified, no pneumothorax apparent. CARDIOVASCULAR: Normal. OSSEOUS STRUCTURES: No significant abnormalities. VISUALIZED UPPER ABDOMEN: Normal. OTHER FINDINGS: None. IMPRESSION: No active disease.
--- NOTE | 2018-07-20 11:23 | CARD ---
APPROVED REPORT Date of service: 07/19/2018 EKG Measurement Heart [id number] <Conclusion> Normal sinus rhythm Normal ECG
== END 2018-07-20 01:11 | disposition home or self-care (01) ==
LOC: ED 21:43
DX: R00.2 Palpitations (principal)

== ENCOUNTER 2018-11-29 08:15 | Emergency (ER) | payer OTHER ==
[2018-11-29 08:16] VITALS: BMI 30.8
[2018-11-29 08:26] VITALS: RESP 18
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
[2018-11-29 09:49] VITALS: BP 128/79; PULSE 79; TEMP 97.4; O2SAT 97
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
--- NOTE | 2018-11-29 20:42 | CARD ---
APPROVED REPORT Date of service: 11/29/2018 EKG Measurement Heart [id number] 148P13 [id number] <Conclusion> Normal sinus rhythm Normal ECG
== END 2018-11-29 09:49 | disposition home or self-care (01) ==
LOC: ED 08:15
DX: S20.212A Contusion of left front wall of thorax, initial encounter (principal); S40.012A Contusion of left shoulder, initial encounter; S80.01XA Contusion of right knee, initial encounter; V43.52XA Car driver injured in collision with other type car in traffic accident, initial encounter; W22.11XA Striking against or struck by driver side automobile airbag, initial encounter; Y92.410 Unspecified street and highway as the place of occurrence of the external cause
CPT/HCPCS: 71101; 73030; 73560; 93005; 96372; 99283; J1885

== ENCOUNTER 2018-11-30 14:34 | Emergency (ER) | payer OTHER ==
[2018-11-30 15:51] VITALS: BP 139/85; RESP 18; TEMP 98; BMI 37.8
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
[2018-11-30 17:28] VITALS: PULSE 81; O2SAT 99
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
== END 2018-11-30 17:28 | disposition home or self-care (01) ==
LOC: ED 14:34
DX: S39.012D Strain of muscle, fascia and tendon of lower back, subsequent encounter (principal); V43.52XD Car driver injured in collision with other type car in traffic accident, subsequent encounter
CPT/HCPCS: 72110; 96372; 99283; J1885

== ENCOUNTER 2019-03-25 08:04 | Emergency (ER) | payer OTHER ==
[2019-03-25 08:09] VITALS: BMI 37.0
[2019-03-25 08:13] VITALS: O2SAT 100
--- NOTE | 2019-03-25 08:34 | ED PDOC ---
Arrival/HPI - General Chief Complaint: Upper Extremity Problem/Injury Time Seen by Provider: 03/25/19 08:17 Historian: Patient - History of Present Illness Narrative History of Present Illness (Text): 03/25/19 08:17 Hannah Cortez is an 48 year old female, with a past medical history of rotator cuff surgery, anxiety, asthma, and peptic ulcer disease, who presents to the emergency department complaining of constant left upper extremity and chest pain radiating up to the left neck since last night. Patient informs she was laying down when pain began as discomfort. She states pain is worsened with any kind of movement and is not improved by any position. Patient informs history of heartburn but denies similarities to current complaint. Patient took flexeril prescribed from rotator cuff surgery with no improvement. Patient also informs taking omeprazole for heartburn. Patient denies shortness of breath, nausea, vomiting, diarrhea, dizziness, headache, dizziness, fevers, chills, or any other complaints. Time/Duration: 24 hours Symptom Onset: Gradual Symptom Course: Worsening Activities at Onset: Light Context: Home Past Medical History - Provider Review Nursing Documentation Reviewed: Yes - Past History Past History: Non-Contributing - Infectious Disease Hx of Infectious Diseases: None - Tetanus Immunization Tetanus Immunization: Unknown - Reproductive Menopause: No - Past Medical History Past Medical History: No Previous - Cardiac Hx Cardiac Disorders: No - Pulmonary Hx Asthma: Yes (Seasonal with allergies) - Neurological Hx Neurological Disorder: No - HEENT Hx HEENT Disorder: Yes Other/Comment: reading glasses - Renal Hx Renal Disorder: No - Endocrine/Metabolic Hx Endocrine Disorders: No - Hematological/Oncological Hx Blood Disorders: No - Integumentary Hx Dermatological Disorder: No - Musculoskeletal/Rheumatological Hx Musculoskeletal Disorders: Yes Hx Arthritis: Yes Hx Falls: No Other/Comment: rotator cuff sx bilateral - Gastrointestinal Hx Gastrointestinal Disorders: Yes Hx Gastroesophageal Reflux: Yes - Genitourinary/Gynecological Hx Genitourinary Disorders: Yes Hx Urinary Tract Infection: Yes - Psychiatric Hx Psychophysiologic Disorder: Yes Hx Substance Use: No - Past Surgical History Past Surgical History: No Previous - Surgical History Hx Hysterectomy: Yes Hx Tubal Ligation: Yes Other/Comment: right/left rotator cuff surgery and a tubal ligation - Anesthesia Hx Anesthesia: Yes Hx Anesthesia Reactions: No Hx Malignant Hyperthermia: No - Suicidal Assessment Feels Threatened In Home Enviroment: No Family/Social History - Physician Review Nursing Documentation Reviewed: Yes Family/Social History: No Known Family HX Smoking Status: Never Smoked Hx Alcohol Use: No Hx Substance Use: No Hx Substance Use Treatment: No Allergies/Home Meds Allergies/Adverse Reactions: Allergies No Known Allergies Allergy (Verified 11/29/18 08:26) Home Medications: Home Meds Medication Instructions Recorded Confirmed Omeprazole 20 mg PO ONCE 03/25/19 03/25/19 Review of Systems - Physician Review All systems were reviewed & negative as marked: Yes - Review of Systems Constitutional: absent: Fevers, Other Respiratory: absent: SOB Cardiovascular: Chest Pain (left sided) Gastrointestinal: absent: Diarrhea, Nausea, Vomiting Musculoskeletal: Neck Pain (radiating from left upper extremity / left sided chest pain), Myalgias (left upper extremity ) Neurological: absent: Headache, Dizziness Physical Exam Vital Signs Reviewed: Yes Vital Signs Temp Pulse Resp BP Pulse Ox 03/25/19 08:13 97.6 F 72 18 178/98 H 100 Temperature: Afebrile Blood Pressure: Hypertensive Pulse: Regular Respiratory Rate: Normal Appearance: Positive for: Well-Appearing, Non-Toxic, Comfortable Pain Distress: None Mental Status: Positive for: Alert and Oriented X 3 - Systems Exam Head: Present: Atraumatic, Normocephalic Pupils: Present: PERRL Extroacular Muscles: Present: EOMI Conjunctiva: Present: Normal Mouth: Present: Moist Mucous Membranes Neck: Present: Other (tenderness to left lateral neck) Respiratory/Chest: Present: Clear to Auscultation, Good Air Exchange, Tender to Palpation (left chest tenderness). No: Respiratory Distress, Accessory Muscle Use, Wheezes, Rales, Rhonchi Cardiovascular: Present: Regular Rate and Rhythm, Normal S1, S2. No: Murmurs, Rub, Gallop Abdomen: Present: Normal Bowel Sounds. No: Tenderness, Distention, Peritoneal Signs, Rebound, Guarding Back: Present: Normal Inspection Upper Extremity: Present: Tenderness (left upper shoulder). No: Cyanosis, Edema Lower Extremity: Present: Normal Inspection. No: Edema Neurological: Present: GCS=15, CN II-XII Intact, Speech Normal Skin: Present: Warm, Dry, Normal Color. No: Rashes Psychiatric: Present: Alert, Oriented x 3, Normal Insight, Normal Concentration Medical Decision Making ED Course and Treatment: 05/02/19 08:17 Impression: Patient is a 48 year old female with a past medical history of bilateral rotator cuff surgery, anxiety, asthma, and peptic ulcer disease, who presents to the emergency department complaining of constant left upper extremity and left sided chest pain radiating up to the left neck since yesterday. Plan: -- Labs -- Chest X-ray -- Toradol -- Reassess and disposition Prior Visits: Notes and results from previous visits were reviewed. Progress Notes: Results discussed with patient. On re-eval after toradol was given, patient states that pain has greatly improved. Advised taking NSAIDs at home, can also continue flexeril. Given reproducible shoulder pain, likely muscle spasm rather than cardiac chest pain. Advised patient to follow up with PMD. Return to the emergency department for any new or worsening symptoms. - RAD Interpretation Narrative RAD Interpretations (Text): 03/25/19 10:57 Chest X-Ray shows: IMPRESSION: No active disease. 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 Normal Cameron. Normal Intervals. No ST elevations. Interpreted by ED Physician: Yes Type: 12 lead EKG - Scribe Statement The provider has reviewed the documentation as recorded by the Scribe Fazal Patrick All medical record entries made by the Scribe were at my direction and personally dictated by me. I have reviewed the chart and agree that the record accurately reflects my personal performance of the history, physical exam, medical decision making, and the department course for this patient. I have also personally directed, reviewed, and agree with the discharge instructions and disposition. Disposition/Present on Arrival - Present on Arrival Any Indicators Present on Arrival: No History of DVT/PE: No History of Uncontrolled Diabetes: No Urinary Catheter: No History of Decub. Ulcer: No History Surgical Site Infection Following: None - Disposition Have Diagnosis and Disposition been Completed?: Yes Diagnosis: Shoulder pain, Muscle strain Disposition: HOME/ ROUTINE Disposition Time: 12:41 Condition: GOOD Discharge Instructions (ExitCare): Muscle Strain (DC) Additional Instructions: HANNAH CORTEZ, thank you for letting us take care of you today. Your provider was Mae Rodas MD and you were treated for NECK/LT SHOULDER PAIN. The emergency medical care you received today was directed at your acute symptoms. If you were prescribed any medication, please fill it and take as directed. It may take several days for your symptoms to resolve. Return to the Emergency Department if your symptoms worsen, do not improve, or if you have any other problems. Please contact your doctor or call one of the physicians/clinics you have been referred to that are listed on the Patient Visit Information form that is included in your discharge packet. Bring any paperwork you were given at discharge with you along with any medications you are taking to your follow up visit. Our treatment cannot replace ongoing medical care by a primary care provider outside of the emergency department. Thank you for allowing the [facility] team to be part of your care today. If you had an X-Ray or CT scan: A Radiologist will review the ED reading if any change in treatment is needed we will contact you. If you had a blood, urine, or wound culture: It will take several days for the results, if any change in treatment is needed we will contact you. If you had an STI test: It will take 48 hours for the results. Please call after 1 week if you have not heard back. Referrals: Juliana Corona DO [Primary Care Provider] - Follow up with primary Forms: [employer] (Palestinian)
[2019-03-25 09:27] LABS: BASO # 0.01 K/mm3 (0.0-2.0); BASO % 0.1 % (0.0-3.0); EOS # 0.3 (0.0-0.7); EOS % 3.2 % (1.5-5.0); HEMOGLOBIN 12.2 g/dL (12.0-16.0); LYMPH # 2.6 (1.2-3.4); LYMPH % 29.4 % (22.0-35.0); MEAN CELL VOLUME 86.5 fl (80.0-105.0); MEAN CORPUSCULAR HEMOGLOBIN 27.4 pg (25.0-35.0); MEAN CORPUSCULAR HGB CONC 31.6 g/dl (31.0-37.0); MEAN PLATELET VOLUME 8.5 fl (7.0-11.0); MONO # 0.4 (0.1-0.6); MONO % 4.7 % (1.0-6.0); RBC 4.46 10^6/uL (3.5-6.1); RED CELL DISTRIBUTION WIDTH 13.7 % (11.5-14.5); WHITE BLOOD COUNT 8.9 10^3/uL (4.5-11.0)
[2019-03-25 09:44] LABS: ALB/GLOB RATIO 1.2 (1.1-1.8); ALBUMIN 3.8 g/dL (3.0-4.8); ALT/SGPT 17 U/L (7-56); AST/SGOT 18 U/L (14-36); BLOOD UREA NITROGEN 9 mg/dL (7-21); CALCIUM 9.1 mg/dL (8.4-10.5); GFR NON-AFRICAN AMERICAN > 60
[2019-03-25 09:55] LABS: TROPONIN I < 0.01 ng/mL
--- NOTE | 2019-03-25 11:01 | RAD ---
Date of service: 03/25/2019 HISTORY: chest pain COMPARISON: 07/19/2018 TECHNIQUE: 1 view obtained. FINDINGS: LUNGS: No active pulmonary disease. PLEURA: No significant pleural effusion identified, no pneumothorax apparent. CARDIOVASCULAR: No aortic atherosclerotic calcification present. Normal cardiac size. No pulmonary vascular congestion. OSSEOUS STRUCTURES: No significant abnormalities. VISUALIZED UPPER ABDOMEN: Normal. OTHER FINDINGS: None. IMPRESSION: No active disease.
[2019-03-25 12:45] VITALS: BP 141/76; PULSE 71; RESP 18; TEMP 98.5
--- NOTE | 2019-03-25 18:59 | CARD ---
APPROVED REPORT Date of service: 03/25/2019 EKG Measurement Heart [id number] 140P13 [id number] <Conclusion> Normal sinus rhythm Normal ECG
== END 2019-03-25 12:45 | disposition home or self-care (01) ==
LOC: ED 08:04
DX: T14.8XXA Other injury of unspecified body region, initial encounter (principal); X58.XXXA Exposure to other specified factors, initial encounter; M25.512 Pain in left shoulder
CPT/HCPCS: 71045; 80053; 81025; 84484; 85025; 93005; 96374; 99285; J1885